=== PATIENT | female | born 1970 | race Caucasian/White ===

== ENCOUNTER 2020-02-03 22:01 | Observation (INO) | payer BC, SELFPAY ==
--- NOTE | ~2020-02-03 | US_ITS ---
EXAMINATION: US carotid duplex BI DATE: 02/04/2020 13:51 INDICATION: Right facial weakness. TECHNIQUE: Grayscale, color Doppler, and pulsed Doppler images of the cervical carotid arteries were obtained. The degree of vessel stenosis is placed in one of the following categories: normal, <50%, 5 0-69%, >=70% but less than near-occlusion, near-occlusion, or total occlusion. Note that percent sten osis relative to normal distal artery lumen diameter is indirectly measured from velocity measurement s as described by Tao, et al. Radiology 2003; 229:340-346. COMPARISON: None. FINDINGS: RIGHT: The right common carotid artery (CCA) peak systolic velocity (PSV) is 78 cm/s. The right internal car otid artery (ICA) PSV is 112 cm/s. The right ICA end-diastolic velocity (EDV) is 41 cm/s. The right I CA/CCA PSV ratio is 1.4. Grayscale and color Doppler images yield an estimate of <50% diameter reduct ion from plaque in the ICA. There is antegrade flow in the right vertebral artery. LEFT: The left CCA PSV is 89 cm/s. The left ICA PSV is 89 cm/s. The left ICA EDV is 28 cm/s. The left ICA/C CA PSV ratio is 1.0. Grayscale and color Doppler images yield an estimate of <50% diameter reduction from plaque in the ICA. There is antegrade flow in the left vertebral artery. IMPRESSION: 1. <50% stenosis in the right internal carotid artery. 2. <50% stenosis in the left internal carotid artery. Reviewed, dictated and finalized at location A. F ENGINEER
--- NOTE | ~2020-02-03 | MR_ITS ---
EXAMINATION: MR brain/brain stem wo/w con DATE: 02/04/2020 08:26 INDICATION: Right facial weakness. Headache. TECHNIQUE: Magnetic resonance imaging (MRI) of the brain and brainstem was performed without and with 14 mL MultiHance intravenous contrast. Sequences included sagittal and axial T1-weighted FSE, axial diffusion-weighted FS EPI, axial T2*-weighted GRE, axial T2-weighted FLAIR Propeller, and axial T2-we ighted Propeller. Postcontrast sequences included axial and coronal T1-weighted FSE. Apparent diffusi on coefficient (ADC) maps were created. COMPARISON: Head CT 02/04/2020 FINDINGS: There are scattered areas of nonspecific increased T2-weighted signal intensity in the cere bral white matter, which is within normal limits for the patient's age. There is no intracranial hemo rrhage, acute infarction, or abnormal intracranial mass lesion. The ventricles are normal in size. Th ere is mild mucosal thickening in the ethmoid sinuses. The orbits are normal. There are trace mastoid effusions. IMPRESSION: 1. Normal aging brain. Reviewed, dictated and finalized at location A. TATION TRUCK CLEANER IMPRESSION: 1. Normal aging brain.
--- NOTE | ~2020-02-03 | MR_ITS ---
EXAMINATION: MRA brain wo con DATE: 02/04/2020 14:31 INDICATION: Headache. Right facial weakness. TECHNIQUE: Magnetic resonance angiography (MRA) of the brain was performed without intravenous contra st with T1-weighted SPGR by the 3D [id number] technique. Maximum intensity projection 3D-reconstr uctions were obtained. COMPARISON: Brain MRI 02/04/2020 FINDINGS: Left vertebral artery is dominant. There is no significant stenosis of basilar artery or the posterio r cerebral arteries. There is no significant stenosis of the intracranial internal carotid arteries o r anterior or middle cerebral arteries. Anterior communicating artery is normal. Left posterior commu nicating artery is normal. A right posterior communicating artery is not identified. There is no aneu rysm. IMPRESSION: 1. No aneurysm or significant arterial stenosis. Reviewed, dictated and finalized at location A. ING MACHINE OPERATOR
--- NOTE | ~2020-02-03 | XR_ITS ---
EXAMINATION: XR chest 1V portable DATE: 02/04/2020 00:36 INDICATION: Dizziness and headache. TECHNIQUE: A single frontal view of the chest was obtained. COMPARISON: Chest 2 views 11/04/2013, CT abdomen and pelvis 01/17/2011 FINDINGS: The chest demonstrates clear lungs without pneumonia, pleural effusion, or pneumothorax. Th e heart size is normal. Surgical clips in the right upper quadrant are likely from cholecystectomy. IMPRESSION: 1. No acute cardiopulmonary disease. Reviewed, dictated and finalized at location A. OGRAPHER APPRENTICE LITHOGRAPHIC
--- NOTE | ~2020-02-03 | CT_ITS ---
EXAMINATION: CT brain wo con DATE: 02/04/2020 00:32 INDICATION: Headache. Facial weakness. TECHNIQUE: Computed tomography (CT) of the head was performed without intravenous contrast. The mA wa s adjusted according to patient size. Iterative reconstruction technique was employed. The dose-lengt h product was 605.33 mGy-cm. COMPARISON: None FINDINGS: There is no intracranial hemorrhage, acute infarction, or abnormal intracranial mass lesion . The ventricles are normal in size. The paranasal sinuses are clear. There is a small left mastoid e ffusion. The orbits are normal. IMPRESSION: 1. Normal brain. Reviewed, dictated and finalized at location A. IED PSYCHOLOGY TEACHER IMPRESSION: 1. Normal brain.
[2020-02-03 22:34] VITALS: BP 137/77; PULSE 87; RESP 20; TEMP 35.9; O2SAT 100
[2020-02-03 23:57] VITALS: BP 119/67; PULSE 84; RESP 18; TEMP 36.8; O2SAT 98
--- NOTE | 2020-02-04 00:02 | ECG_ITS ---
Measurements Intervals [place] Rate: 62 P: 24 ND: 157 QRS: 30 QRSD: 98 T: 47 QT: 443 QTc: 451 Interpretive Statements SINUS RHYTHM NORMAL ECG Electronically Signed On 02-04-2020 6:50:00 ASSOCIATE TECHNICIAN by Jake Lama D.O.
--- NOTE | 2020-02-04 00:24 | PC.NURSE ---
Patient to radiology
--- NOTE | 2020-02-04 00:31 | ED.HA ---
HPI - Headache General Chief Complaint: Headache <SID Salas Last Filed: 02/04/20 02:47> Stated Complaint: ORTIZ, n/v, dizzy <SID Salas Last Filed: 02/04/20 02:47> Time Seen by Provider: 02/03/20 23:54 <SID Salas Last Filed: 02/04/20 02:47> Source: patient <SID Salas Last Filed: 02/04/20 02:47> Mode of arrival: ambulatory <SID Salas Last Filed: 02/04/20 02:47> Limitations: no limitations <SID Salas Last Filed: 02/04/20 02:47> History of Present Illness HPI Narrative: This is a 49 year old female that presents to the ER for right sided headache x 4 hours. Reports she noted some pain behind her right eye. Then she started to have a headache. Then she noted some drooping of her right eyelid and the vision in her right eye became blurry. Reports these symptoms resolved after about 30 minutes, but she does still have some photophobia in the eye and nausea. Reports a couple episodes of vomiting. Also reports still a mild headache. Denies fever, cold symptoms, or current numbness or weakness. <SID Salas Last Filed: 02/04/20 02:47> Related Data Home Medications: Home Medications Medication Instructions Recorded Confirmed No Home Medications 02/03/20 02/03/20 <SID Salas Last Filed: 02/04/20 02:47> Allergies/Adverse Reactions: Allergies Allergy/AdvReac Type Severity Reaction Status Date / Time gadobenic acid Allergy Intermediate Hives Verified 02/04/20 04:05 [From contrast - MRI] iodine Allergy Unknown Rash Verified 02/04/20 04:05 Sulfa (Sulfonamide Allergy Unknown Hives Verified 02/04/20 04:05 Antibiotics) sulfanilamide Allergy Unknown Hives Verified 02/04/20 04:05 adhesive tape AdvReac Severe RASH Verified 04/28/19 16:20 Contrast Media Allergy Intermediate Swelling Uncoded 02/04/20 04:05 <Gretel Bravo PA-C - Last Filed: 02/04/20 02:47> Review of Systems Review of Systems: Narrative: CONSTITUTIONAL: Denies fever EYES: Reports visual changes ENT: Denies rhinorrhea, congestion, sore throat GASTROINTESTINAL: Reports nausea, vomiting NEUROLOGIC: Reports headache, weakness. <Gretel Bravo PA-C - Last Filed: 02/04/20 02:47> All systems reviewed & are unremarkable except as noted in HPI and below <Gretel Bravo PA-C - Last Filed: 02/04/20 02:47> PMFSH Past Medical History Medical History: Medical History (Updated 02/04/20 @ 02:47 by Gretel Bravo PA-C) History of gastroesophageal reflux (GERD) <Gretel Bravo PA-C - Last Filed: 02/04/20 02:47> Surgical History Surgical History: Surgical History (Updated 02/04/20 @ 00:40 by Gretel Bravo PA-C) History of appendectomy History of History of cholecystectomy History of hysterectomy <Gretel Bravo PA-C - Last Filed: 02/04/20 02:47> Family History Family History: Family History (Updated 01/02/17 @ 14:11 by DOCTOR UNKNOWN) Mother Patient's mother is in good health Father Patient's father is in good health Other Family history of osteoarthritis Hypertension <Gretel Bravo PA-C - Last Filed: 02/04/20 02:47> Social History Social History: Social History Smoking status: Never smoker Second hand tobacco smoke exposure: No Alcohol intake: never Substance use: never Gender identity (if verbalized by the patient): Female Spiritual care concerns: No Agree to blood products: Yes <Gretel Bravo PA-C - Last Filed: 02/04/20 02:47> Exam Narrative: Exam Narrative: GENERAL: Well-appearing, well-nourished, and in no acute distress. HEAD: Normocephalic, atraumatic. EYES: PERRLA and EOMI. Vision 20/30 left, 20/50 right ENT: Nares clear, no rhinorrhea or epistaxis. Mucous membranes moist. Oropharynx without tonsillar hypertrophy exudate or other lesions. Bilateral TMs pearly mix non-bulging NECK: Supple. No adenopathy
[2020-02-04] MEDS: ONDANSETRON INJ 4 MG/2 ML VIAL IV PUSH (00:51)
[2020-02-04] MEDS: SODIUM CHLORIDE 0.9% IV 1,000 ML 999 ML IV CONT (00:51)
[2020-02-04 01:11] LABS: Basophils Percent Auto 0.7 % (0.2-1.2); Eosinophils Absolute Auto 0.1 K/mm3 (0-0.3); Eosinophils Percent Auto 2.2 % (0-4.4); Hematocrit 39.9 % (37.0-47.0); Hemoglobin 13.8 g/dL (12.0-15.0); Immature Granulocyte Absolute 0.01 K/mm3 (0.00-0.031); Immature Granulocyte Percent A 0.2 % (0-0.5); Lymphocytes Absolute Auto 3.13 K/mm3 (0.9-3.2); Lymphocytes Percent Auto 56.3 % (18.3-44.2); Mean Corpuscular HGB Conc 34.6 g/dl (32-36); Mean Corpuscular Hemoglobin 29.6 pg (26-34); Mean Corpuscular Volume 85.6 fl (80-100); Mean Platelet Volume 9.2 fl (7.4-10.4); Monocytes Absolute Auto 0.4 K/mm3 (0.1-0.6); Monocytes Percent Auto 6.8 % (2.6-8.5); Neutrophils Absolute Auto 1.9 K/mm3 (1.3-6.7); Neutrophils Percent Auto 33.8 % (45.5-73.1); Platelet Count Result 235 k/mm3 (150-375); Red Blood Count 4.66 M/mm3 (4.2-5.4); Red Cell Distribution Width 12.8 % (11.5-14.5); White Blood Count 5.6 K/mm3 (4.5-10.0)
[2020-02-04 01:14] LABS: INR 0.9; Prothrombin Time 11.9 Seconds (11.1-14.7)
[2020-02-04 01:15] LABS: Partial Thromboplastin Time 30.6 SECONDS (22.3-36.8)
[2020-02-04 01:19] LABS: Blood Urea Nitrogen 12 mg/dL (7-17); Carbon Dioxide 25 mmol/L (22-30); Chloride 102 mmol/L (98-107); Estimated CRCL calculation 95 ml/min; Estimated Glomerular Filt Rate > 60; Glucose 127 mg/dL (65-105); Potassium 3.4 mmol/L (3.4-5.0); Sodium 139 mmol/L (137-145)
[2020-02-04 01:21] VITALS: TEMP 36.8
[2020-02-04 01:43] VITALS: BP 107/58; PULSE 61; RESP 13; O2SAT 98
[2020-02-04 01:53] LABS: Troponin I 0.012 ng/mL (0.000-0.034)
[2020-02-04] MEDS: METOCLOPRAMIDE HCL INJ 10 MG/2 ML VIAL IV PUSH (02:51)
[2020-02-04] MEDS: KETOROLAC 30 MG/ML VIAL (*BKC) IV PUSH (02:54)
[2020-02-04 03:06] VITALS: BP 97/78; PULSE 70; RESP 17; TEMP 36.6; O2SAT 99
[2020-02-04 03:25] VITALS: BP 105/58; PULSE 68; RESP 18; TEMP 36.8; O2SAT 92; BMI 29.6
--- NOTE | 2020-02-04 03:42 | ADMGEN ---
This patient, Yolanda Plata, was admitted to 3 [facility] Surg Room 324-02. Patient/family oriented to hospital policies and general routines including ID bracelet, bed and alarms, visiting hours, pain management, procedures, bathroom and other care routines, personal items, smoking policy, room service/diet, and visiting hours. Valuables list has been completed. Information on how to activate the Rapid Response Team has been discussed. Patient/Family are encouraged to report perceived risks to care and to ask questions if they do not understand what they are told or what they should do.
[2020-02-04 04:00] VITALS: PULSE 70
--- NOTE | 2020-02-04 05:45 | ECHO_ITS ---
Patient Info Name: Yolanda Plata Age: 49 years : 1970 Gender: Female Ht: 63 in Wt: 167 lbs BSA: 1.86 m2 HR: 59 bpm BP: 134 / 73 mmHg Technical Quality: Good Exam Date: 02/04/2020 12:54 PM Exam Location: [facility] Pulmonary Patient Status: Outpatient Admit Date: 02/04/2020 Staff Ordering Physician: Henry Lubin MD Emergency Dispatch Operator: Chris Bullock, FERNANDA, RT Attending Provider: Henry Lubin MD Referring Physician: Amee BRYANT; Exam Type: CA echo doppler color flow Study Info Indications G45.9 - Transient cerebral ischemic attack, unspecified Complete two-dimensional, color flow and Doppler transthoracic echocardiogram is performed. Summary 1. Left ventricular chamber dimension is normal. 2. Left ventricular systolic function is normal, estimated at 60-65%. 3. The left ventricular diastolic function is normal. 4. E/e' 7 is not elevated. 5. Global longitudinal strain is normal at -18.3%. 6. There is trace mitral valve regurgitation. 7. There is trace tricuspid valve regurgitation. Left Ventricle E/e' 7 is not elevated. Global longitudinal strain is normal at -18.3%. Left ventricular chamber dimension is normal. Left ventricular systolic function is normal, estimated at 60-65%. The left ventricular diastolic function is normal. Right Ventricle Right ventricular chamber dimension is normal. Right ventricular systolic function is normal. Left Atria Left atrial chamber dimension is normal. Right Atria Right atrial chamber dimension is normal. Atrial Septum Intact interatrial septum visualized by color flow imaging. Aortic Valve The aortic valve is trileaflet. There is no aortic valve stenosis. There is no aortic valve regurgitation. Pulmonic Valve There is no pulmonic regurgitation. Mitral Valve There is no mitral valve stenosis. There is trace mitral valve regurgitation. Tricuspid Valve There is trace tricuspid valve regurgitation. RVSP is not measured due to an inadequate TR jet. Pericardium/Pleural There is no pericardial effusion. Inferior Vena Cava Normal inferior vena cava with >50% collapse upon inspiration consistent with normal right atrial pressure, 5 mmHg. Aorta The aortic root size at the sinus of Valsalva is normal. Left Ventricular Outflow Tract Name Value Normal LVOT 2D LVOT Diameter 1.9 cm LVOT Doppler LVOT Peak Gradient 4 mmHg LVOT Mean Gradient 2 mmHg LVOT VTI 20 cm LVOT VTI/AV VTI Ratio 0.9 LVOT Stroke Volume 59 ml LVOT CO 4.0 l/min LVOT CI 2.1 l/min/m2 Pulmonic Valve Name Value Normal PV Doppler PV Peak Gradient 2 mmHg Mitral Valve ------
[2020-02-04 06:00] VITALS: BP 134/73; PULSE 85; RESP 18; TEMP 36.7; O2SAT 100
[2020-02-04] MEDS: SODIUM CHLORIDE 0.9% IV 1,000 ML 100 ML IV CONT (06:15)
[2020-02-04 06:59] LABS: Cholesterol 215 mg/dL (0-200); HDL Direct 48 mg/dL; Triglycerides 86 mg/dL (<150)
[2020-02-04 07:10] LABS: LDL Cholesterol Direct 164 mg/dL
[2020-02-04] MEDS: ASPIRIN 81 MG ENTERIC TABLET PO (08:28)
[2020-02-04 10:06] LABS: Free T4 Free Thyroxine Reflex 1.08 ng/dL (0.78-2.19)
--- NOTE | 2020-02-04 11:23 | PM.IMHP ---
H&P: HPI History of Present Illness Chief complaint: rule out cva Narrative: Yolanda Plata is a 49 year old female was in her usual state of health about 8:00 p.m. last evening. She developed sudden onset a right orbital and ocular headache. Severe and intense. Constant. Not throbbing. Shortly after onset her right lid drooped and she has slight drooping of the right corner of her mouth. Vision in her right eye was severely blurred. During the headaches she had photophobia and nausea vomiting and dizziness. No phonophobia. The severe headache lasted about 1/2 hour. The photophobia persisted for a few hours. She had someone tour bus driver/guide to the emergency room and arrived at about 10:[address] of the brain was unremarkable. The dripping high and coronary the mouth had resolved by the time she reached the emergency department. She has a history of migraine headaches during her early 20s. Perimenstrual. Occipital with associated photophobia nausea vomiting. She would take medication at the onset and every hour until the headache resolved. She had about 5-6 headaches during her life time prior to the headache last PM. Denied trouble speaking or swallowing. Denied trouble hearing. Denied focal numbness or tingling in the extremities. Denied focal weakness in the extremities. Denied difficulty walking. Review of Systems Review of Systems: All systems reviewed & are unremarkable except as noted in HPI and below PMFSH Past Medical History Medical History (Updated 02/04/20 @ 11:56 by Mark Mo MD) History of gastroesophageal reflux (GERD) Hypercholesterolemia Migraine Surgical History Surgical History (Updated 02/04/20 @ 11:29 by Mark Mo MD) History of appendectomy History of History of cholecystectomy History of hysterectomy At about age 35 History of removal of cervix but not uterus for abnormal cells Family History Family History Mother Patient's mother is in good health Father Patient's father is in good health Other Family history of osteoarthritis Hypertension Social History Social History (Updated 02/04/20 @ 11:30 by Mark Mo MD) Smoking status: Never smoker Second hand tobacco smoke exposure: No Alcohol intake: current Alcohol use details: about once per month, small amount Substance use: never Living arrangements: alone Occupation/Education: occupation 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 Gender identity (if verbalized by the patient): Female Spiritual care concerns: No Agree to blood products: Yes Meds Home Medications and Allergies Home Medications Medication Instructions Recorded Confirmed Type No Home Medications 02/03/20 02/03/20 History Allergies Allergy/AdvReac Type Severity Reaction Status Date / Time gadobenic acid Allergy Intermediate Hives Verified 02/04/20 04:05 [From contrast - MRI] iodine Allergy Unknown Rash Verified 02/04/20 04:05 Sulfa (Sulfonamide Allergy Unknown Hives Verified 02/04/20 04:05 Antibiotics) sulfanilamide Allergy Unknown Hives Verified 02/04/20 04:05 adhesive tape AdvReac Severe RASH Verified 04/28/19 16:20 Contrast Media Allergy Intermediate Swelling Uncoded 02/04/20 04:05 Vital Signs Vital Signs - 24 hr 02/03/20 22:34 02/03/20 23:57 02/04/20 01:21 Temperature 96.6 F L 98.2 F 98.2 F Pulse Rate 87 84 Respiratory Rate 20 18 Blood Pressure 137/77 119/67 Pulse Oximetry 100 98 02/04/20 01:43 02/04/20 03:06 02/04/20 03:25 Temperature 97.8 F 98.2 F Pulse Rate 61 70 68 Respiratory Rate 13 17 18 Blood Pressure 107/58 L 97/78 L 105/58 L Pulse Oximetry 98 99 92 02/04/20 04:00 02/04/20 06:00 Temperature 98.1 F Pulse Rate 70 85 Respiratory Rate 18 Blood Pressure 134/73 Pulse Oximetry 100 Exam Narrative: Exam Narrative: HEENT: EOMI, PERRL, sclerae nonicter
--- NOTE | 2020-02-04 15:17 | CONS_ITS ---
DATE OF CONSULTATION: Patient of Dr. Henry Lubin. HISTORY: This 49 years old right-handed female has been admitted to [facility] through the emergency room for the complaint of sudden onset of right ocular pain and headache of intense severity. Shortly after that, the patient developed right upper eyelid drooping and drooping of the right side of the corner of the mouth. Her vision in the right eye was severely blurred. She complained of photophobia, nausea and vomiting along with the dizziness, but no phonophobia. The whole episode of severe headache lasted for about 1-1/2 hours and subsequently persisted for few hours the photophobia. Someone drove her to the emergency room. Initial CT scan in the emergency room was negative. The facial asymmetry was resolved by that time she came to the emergency room subsequently. She does have a history of migraine headaches during her early 20s, in perimenstrual period mainly located in the occipital area associated with nausea, vomiting, and photophobia. She had taken the medication almost every 1 hour at that time until the headache was resolved. She gave no history of difficulties in swallowing, difficulties in speech. PAST MEDICAL HISTORY: She does have ongoing history of 1. GERD. 2. Hypercholesterolemia. 3. Migraine. PAST SURGICAL HISTORY: She has undergone appendectomy, , cholecystectomy, hysterectomy, and removed her cervix, but not uterus for abnormal cells. FAMILY HISTORY: Unremarkable except the history of osteoarthritis and hypertension. SOCIAL HISTORY: She does not smoke and drinks only once per month, very small amount. No substance abuse. MEDICATIONS: She is not taking any home medication. ALLERGIES: SHE IS ALLERGIC TO MRI CONTRAST, IODINE, SULFA, AND ADHESIVE TAPE. PHYSICAL EXAMINATION: VITAL SIGNS: On initial evaluation, she was found to be afebrile with pulse 87, respiration 20, blood pressure 137/77. GENERAL: On examination today, she is awake, alert, cooperative, in no obvious acute distress. HEENT: Head normocephalic with no cranial bruit. Ear, nose, throat examination normal. NECK: Supple with no cervical bruit. No thyromegaly. No lymphadenopathy. HEART: Regular with no murmur. LUNGS: Clear to auscultation. ABDOMEN: Soft with no organomegaly. NEUROLOGICAL: She is awake, alert, and oriented x3. Her speech not dysphasic, no dysarthric, not dysphonic. Affect completely normal. Motor examination revealed her to have normal strength and tone in upper and lower extremities proximally and distally with no evidence of asymmetry of the deep tendon reflexes. Plantars are definitely downgoing. There is no evidence of ataxia or dysmetria on [id number]-to-finger. LABORATORY AND IMAGING DATA: Evaluation up until now revealed normal CBC, normal basic metabolic panel, troponin 0.012. She has undergone brain MRI, which revealed normal aging brain. CT scan of the head without contrast, normal. Chest x-ray is negative. PLAN: We are planning to have the CTA because of the right-sided visual difficulties. As she is allergic to the dye, she will be prepared today for allergic reaction and will undergo this study tomorrow. In the meantime, she will be continued on the medication as such, which includes p.r.n. pain medication. Thank you very much for letting me to evaluate this patient. STEPHANIE GARCIA M.D. FLIGHT TEST DATA ACQUISITION TECHNICIAN FLIGHT TEST DATA ACQUISITION TECHNICIAN D [place]: Gerri
[2020-02-04 15:29] LABS: Total Triiodothyronine (T3) 1.32 NG/ML (0.97-1.69)
--- NOTE | 2020-02-04 15:56 | PM.DS ---
DS: Diagnosis Admitting Diagnosis Admitting Diagnosis: Headache Discharge Diagnosis (1) Headache: Qualifiers: Headache type: unspecified Headache chronicity pattern: acute headache Intractability: not intractable Qualified Code(s): R51 - Headache Code(s): R51 - Headache Status: Acute Assessment and Plan: Although this was the worst headache of her life, the periorbital unilateral location, associated visual symptoms, photophobia, nausea vomiting all suggest vascular headache. Her past history of migraine are consistent with recurrence of migraines. However cerebral aneurysm should be excluded. MRA brain Home if negative (2) Elevated TSH: Code(s): R79.89 - Other specified abnormal findings of blood chemistry Status: Acute Assessment and Plan: Currently she is asymptomatic without symptoms of hypothyroidism She may have euthyroid hypothyroidism Outpatient follow-up is indicated (3) Hypercholesterolemia: Code(s): E78.00 - Pure hypercholesterolemia, unspecified Status: Acute Assessment and Plan: Given that her LDL cholesterol is less than 190 and she has no other cardiovascular risk factors, that should be addressed with lifestyle modification and follow-up lab DS: Summary Hospital Course Reason for hospitalization: headache Hospital Course: Presented with headache, blurred vision, right facial droop. Persisted for about 30 min. Photophbia. N/v as well. MRA brain negative. Carotid doppler negative. No recurrence of headache. Time Spent with Patient Time attestation: Total time spent providing and/or coordinating discharge services: 45 min Exam Narrative: Exam Narrative: HEENT: EOMI, PERRL, sclerae nonicteric, Fundi intact, pharyngeal mucosa pink and intact NECK: No JVD, adenopathy, or thyromegaly CHEST: Clear to auscultation. Normal effort. HEART: NL S1/S2, regular, no murmur ABDOMEN: BS+, soft, nontender, no mass, no bruits EXTREMITIES: No cyanosis, edema, or clubbing NEUROLOGIC: CN intact and symmetric to inspection. DTRs intact biceps triceps and knees. Trace at the ankles. Babinski's negative. Finger-nose intact. No drift. MUSCULOSKELETAL: Tone and strength symmetric. PSYCH: Alert. Oriented to person, place, and time. DS: Data Data Completed and Pending Labs on day of discharge: Labs from last 24 hours 02/04/20 02/04/20 02/04/20 06:36 06:36 06:36 WBC RBC Hgb Hct MCV MCH MCHC RDW Plt Count MPV Immature Gran % (Auto) Neut % (Auto) Lymph % (Auto) [place] % (Auto) Eos % (Auto) Baso % (Auto) Lymph # (Auto) [place] # (Auto) Eos # (Auto) Baso # (Auto) Abs Immat Gran (auto) Absolute Neuts (auto) Absolute Nucleated RBC Nucleated RBC % PT INR APTT Sodium Potassium Chloride Carbon Dioxide BUN Creatinine Estim Creat Clear Calc Estimated GFR Glucose Hemoglobin A1c Calcium Troponin I Triglycerides Cholesterol LDL Cholesterol Direct HDL Direct TSH (Reflex) 10.500 H Free T4 1.08 Total T3 1.32 02/04/20 02/04/20 02/04/20 06:36 00:49 00:49 WBC RBC Hgb Hct MCV MCH MCHC RDW Plt Count MPV Immature Gran % (Auto) Neut % (Auto) Lymph % (Auto) [place] % (Auto) Eos % (Auto) Baso % (Auto) Lymph # (Auto) [place] # (Auto) Eos # (Auto) Baso # (Auto) Abs Immat Gran (auto) Absolute Neuts (auto) Absolute Nucleated RBC Nucleated RBC % PT INR APTT Sodium 139 Potassium 3.4 Chloride 102 Carbon Dioxide 25 BUN 12 Creatinine 0.60 L Estim Creat Clear Calc 95 Estimated GFR > 60 Glucose 127 H Hemoglobin A1c 6.0 H Calcium 9.0 Troponin I 0.012 Triglycerides 86 Cholesterol 215 H LDL Cholesterol Direct 164 HDL Direct 48 TSH (Reflex) Free T4 Total T3 03
== END 2020-02-04 16:44 | disposition home or self-care (01) ==
LOC: ANHED 02-04 02:47 → ANH3MEDSUR 02-04 11:36
PROVIDERS: Physician Assistant; Admitting Provider Family Medicine; Emergency Provider General Practice; PCP Internal Medicine; Visit Provider Internal Medicine
DX: R51 Headache (principal); R29.810 Facial weakness; R79.89 Other specified abnormal findings of blood chemistry; E78.00 Pure hypercholesterolemia, unspecified; Z88.2 Allergy status to sulfonamides; Z91.041 Radiographic dye allergy status
CPT/HCPCS: 36415; 70450; 70544; 70553; 71045; 80048; 80061; 83036; 84439; 84443; 84480; 84484; 85025; 85610; 85730; 93005; 93306; 93880; 96361; 96374; 96375; 99285; A9270; A9577; G0378; J0131; J1200; J1885; J2405; J2765; J7030

== ENCOUNTER 2020-05-25 10:59 | Outpatient (CLI) | payer BC, SELFPAY ==
--- NOTE | ~2020-05-25 | MMUS_ITS ---
EXAMINATION: MM screen LT diag RT w marie, US breast RT limited HISTORY: Right breast lump TECHNIQUE: Additional 3-D tomosynthesis images of were performed and synthetic 2-D images were genera sana. Rotated lateral cc views of right breast. CAD analysis was submitted and interpreted. High resol ution targeted right breast ultrasound at 10:00 9 cm from nipple was performed. COMPARISON: 11/27/2018, 08/11/2014 bilateral digital screening mammogram examinations BREAST PARENCHYMAL COMPOSITION: There are scattered areas of fibroglandular density. FINDINGS: MAMMOGRAPHIC FINDINGS: No suspicious mass or architectural distortion, malignant calcification, skin thickening or retractio n or significant new or developing density is detected. A marker was placed on the skin where the patient complains of breast lump, at the axillary tail area . There is only underlying subcutaneous adipose tissue in this area. ULTRASOUND: There is no evidence of focal abnormal solid or cystic lesion in the vicinity of the complaint of rig ht breast lump at 10:00 9 cm from the nipple. IMPRESSION: 1. No mammographic evidence of malignancy 2. . Routine mammographic screening is recommended. BI-RADS Category 1: Negative Reviewed, dictated and finalized at location A. IMPRESSION: 1. No mammographic evidence of malignancy 2. . Routine mammographic screening is recommended. BI-RADS Category 1: Negative
== END 2020-05-25 11:00 | disposition home or self-care (01) ==
PROVIDERS: PCP Internal Medicine; Visit Provider Internal Medicine
DX: Z12.31 Encounter for screening mammogram for malignant neoplasm of breast (principal); N63.10 Unspecified lump in the right breast, unspecified quadrant; R92.2 Inconclusive mammogram
CPT/HCPCS: 76642; 77063; 77065; 77067

== ENCOUNTER 2021-07-14 15:32 | Outpatient (CLI) | payer BC, SELFPAY ==
--- NOTE | ~2021-07-14 | MM_ITS ---
EXAMINATION: MM screening [facility] BI w marie HISTORY: Screening TECHNIQUE: Craniocaudal and mediolateral oblique 3-D tomosynthesis images were obtained and synthetic 2-D images were generated. CAD analysis was submitted and interpreted. COMPARISON: Comparison to multiple prior studies sequentially, with oldest reviewed study dated 06/29. BREAST PARENCHYMAL COMPOSITION: There are scattered areas of fibroglandular density. FINDINGS: There is no evidence of suspicious mass, calcification, or architectural distortion to sugg est malignancy in either breast. There has been no suspicious interval change. IMPRESSION: 1. No mammographic evidence of malignancy. 2. Recommend routine screening mammography in one year. BI-RADS Category 1: Negative Reviewed, dictated and finalized at location A.
== END 2021-07-14 15:33 | disposition home or self-care (01) ==
LOC: ANHIMG 15:34
PROVIDERS: PCP Physician Assistant; Visit Provider Internal Medicine
DX: Z12.31 Encounter for screening mammogram for malignant neoplasm of breast (principal)
CPT/HCPCS: 77063; 77067

== ENCOUNTER 2021-07-18 09:59 | Outpatient (CLI) | payer BC, SELFPAY ==
--- NOTE | 2021-07-26 07:31 | WPDHOLTEREM ---
Holter/Event Monitor Holter/Event Monitor Date of procedure: 07/18/21 Holter/Event Procedure: 48 Hr Holter Monitor Indications: Palpitations Conclusion: 1. 48 hour holter monitor on 07/18/21. 2. Underlying rhythm is sinus rhythm. HR range 49-136 bpm; average HR 81 bpm. 3. There are 11 premature supraventricular complexes and 2 supraventricular couplets. No supraventricular tachycardia. 4. No premature ventricular complexes. No ventricular tachycardia. 5. No sinoatrial or atrioventricular blocks. No significant pauses greater than 2 seconds. 6. Patient reports symptoms of headache, heartburn, fast heart rate, skipped beats which demonstrate sinus rhythm, HR range 66-114 bpm.
== END 2021-07-18 10:00 | disposition home or self-care (01) ==
LOC: ANHCARD 07-28 10:00
PROVIDERS: PCP Physician Assistant; Visit Provider Internal Medicine
DX: R00.2 Palpitations (principal)
CPT/HCPCS: 93225; 93226

== ENCOUNTER 2021-08-21 02:25 | Day surgery (SDC) | payer BC, SELFPAY ==
[2021-08-14 14:18] VITALS: BMI 32.0
[2021-08-21 08:55] VITALS: BP 127/74; PULSE 86; RESP 18; TEMP 36.3; O2SAT 97; BMI 31.3
[2021-08-21] MEDS: LACTATED RINGERS 1,000 ML 150 ML IV CONT (09:09)
[2021-08-21 09:12] LABS: Glucose Point of Care 102 mg/dl (65-105)
--- NOTE | 2021-08-21 09:37 | PM.HPGS ---
History of Present Illness History of Present Illness Consent: Risks, benefits, and alternatives have been discussed and questions answered. Patient agrees to proceed with procedure. Chief complaint: neoplasm screening, epigastric pain Narrative: Yolanda Plata is a 50 year old female who has had problems with heartburn and epigastric pain. she comes in for diagnostic EGD and also for colon cancer screening. Since starting pantoprazole the heartburn has improved but not her pain. She also has had a change in bowel habits beginning in April. Now she has a bowel movement only every 2 or 3 days. She tends have lower abdominal pain before and after bowel movements. She kg she has a spot of blood on her stools. Her stools tend to be hard, either small balls or long, but always hard. She is trying to eat a better diet because she has been found to be diabetic. She has lost about 7 lb with diet Review of Systems Review of Systems: All systems reviewed & are unremarkable except as noted in HPI and below PMFSH Past Medical History Medical History Diabetes mellitus History of gastroesophageal reflux (GERD) Hypercholesterolemia Migraine Surgical History Surgical History History of appendectomy History of History of cholecystectomy History of hysterectomy At about age 35 History of removal of cervix but not uterus for abnormal cells Family History Family History Mother Patient's mother is in good health Melanoma Father Patient's father is in good health Other Family history of osteoarthritis Hypertension Social History Social History Smoking status: Never smoker Second hand tobacco smoke exposure: No Alcohol intake: never Alcohol use details: about once per month, small amount Substance use: never Substance use type: does not use Living arrangements: with family 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 Gender identity (if verbalized by the patient): Female Spiritual care concerns: No Agree to blood products: Yes Meds Home Medications and Allergies Home Medications Medication Instructions Recorded Confirmed Type pantoprazole 40 mg tablet,delayed 40 mg PO QAM #90 tablet 07/05/21 08/14/21 Rx release lisinopril 5 mg tablet 5 mg PO DAILY #90 tablet 07/14/21 08/14/21 Rx metformin 500 mg tablet 500 mg PO BID #60 tablet 07/14/21 08/14/21 Rx rosuvastatin 10 mg tablet 10 mg PO DAILY #90 tablet 07/14/21 08/14/21 Rx blood sugar diagnostic #100 ea 07/21/21 07/31/21 Rx lancets #100 ea 07/21/21 07/31/21 Rx blood-glucose meter #1 ea 08/18/21 Rx Allergies Allergy/AdvReac Type Severity Reaction Status Date / Time iodine Allergy Unknown Rash Verified 08/21/21 08:54 sulfanilamide Allergy Unknown Hives Verified 08/21/21 08:54 adhesive tape AdvReac Severe RASH Verified 08/21/21 08:54 Contrast Media Allergy Intermediate Swelling Uncoded 07/31/21 11:06 Vital Signs Vital Signs - 24 hr 08/21/21 08:55 Temperature 36.3 C L Pulse Rate 86 Respiratory Rate 18 Blood Pressure 127/74 Pulse Oximetry 97 Exam Const: General: alert Orientation/consciousness: patient oriented x3 Resp: Auscultation: clear to auscultation bilaterally Cardio: Rhythm: regular rhythm GI: GI Palp: Yes Soft to palpation and No Tenderness to palpation present (GI) Neuro: General: patient oriented x3 Assessment and Plan Assessment and plan (1) GERD (gastroesophageal reflux disease): Code(s): K21.9 - Gastro-esophageal reflux disease without esophagitis Status: Acute Assessment and Plan: EGD with possible biopsy or dilatation or cautery. (2) Colon cancer screening: Code(s): Z12.11 - Encounter for screening for malignant neoplasm
--- NOTE | 2021-08-21 09:45 | WPDANESEPPF ---
Anes - Initial Pre Proc Eval Procedure: Operation Date: 08/21/21 10:00 Proposed Procedures p Esophagogastroduodenoscopy&Screen Colon - Yrn Jones MD Date/Time: 08/21/21 09:45 Surgeon: Yrn Jones MD Pre Op Diagnosis: neoplasm screening, epigastric pain Patient Data Age: 50 Gender: F Height: 1.6 m Weight: 80.2 kg Last Vital Signs Temp 97.4 F L 08/21/21 08:55 Pulse 86 08/21/21 08:55 Resp 18 08/21/21 08:55 BP 127/74 08/21/21 08:55 Pulse Ox 97 08/21/21 08:55 Allergies Allergy/AdvReac Type Severity Reaction Status Date / Time iodine Allergy Unknown Rash Verified 08/21/21 08:54 sulfanilamide Allergy Unknown Hives Verified 08/21/21 08:54 adhesive tape AdvReac Severe RASH Verified 08/21/21 08:54 Contrast Media Allergy Intermediate Swelling Uncoded 07/31/21 11:06 Home Medications Medication Instructions Recorded Confirmed Type pantoprazole 40 mg tablet,delayed 40 mg PO QAM #90 tablet 07/05/21 08/14/21 Rx release lisinopril 5 mg tablet 5 mg PO DAILY #90 tablet 07/14/21 08/14/21 Rx metformin 500 mg tablet 500 mg PO BID #60 tablet 07/14/21 08/14/21 Rx rosuvastatin 10 mg tablet 10 mg PO DAILY #90 tablet 07/14/21 08/14/21 Rx blood sugar diagnostic #100 ea 07/21/21 07/31/21 Rx lancets #100 ea 07/21/21 07/31/21 Rx blood-glucose meter #1 ea 08/18/21 Rx Laboratory Tests 08/21/21 09:06 POC Capillary Glucose 102 mg/dl mg/dl (65-105) Patient hx anesthesia problems: none Family hx anesthesia problems: none PMFSH Past Medical History Medical History Diabetes mellitus History of gastroesophageal reflux (GERD) Hypercholesterolemia Migraine Surgical History Surgical History History of appendectomy History of History of cholecystectomy History of hysterectomy At about age 35 History of removal of cervix but not uterus for abnormal cells Family History Family History Mother Patient's mother is in good health Melanoma Father Patient's father is in good health Other Family history of osteoarthritis Hypertension Social History Social History Smoking status: Never smoker Second hand tobacco smoke exposure: No Alcohol intake: never Alcohol use details: about once per month, small amount Substance use: never Substance use type: does not use Living arrangements: with family 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 Gender identity (if verbalized by the patient): Female Spiritual care concerns: No Agree to blood products: Yes Anes - Eval Final PreProcedure Day of Procedure 08/21/21 09:45 Patient weight: obese Heart: regular rate and rhythm Lungs: clear to auscultation Airway: Mallampati scale class II Neurological: alert and oriented Last oral intake: >/= 8 hours ASA classification: III Emergent: no Anesthetic plan: proceed Anesthesia type and monitoring: general GIVS and standard monitoring Informed Consent: The patient's anesthetic plan and its attendant risks and benefits were discussed with the patient/family/POA. Questions were solicited and answers provided to the satisfaction of the patient/family/POA.
--- NOTE | 2021-08-21 10:15 | SUR.OPER ---
EGD START 953, END 955 COLONOSCOPY START 1003, END 101
[2021-08-21 10:20] VITALS: BP 102/62; PULSE 75; RESP 17; O2SAT 96
[2021-08-21 10:30] VITALS: BP 113/69; PULSE 83; RESP 15; O2SAT 96
[2021-08-21 10:40] VITALS: BP 111/67; PULSE 80; RESP 13; O2SAT 100
== END 2021-08-21 11:03 | disposition home or self-care (01) ==
PROVIDERS: PCP Physician Assistant; Visit Provider Internal Medicine Gastroenterology
PROC: 0DJ08ZZ Inspection of Upper Intestinal Tract, Via Natural or Artificial Opening Endoscopic (ICD-10-PCS; CPT 43235; principal; 2021-08-21 10:00)
DX: Z12.11 Encounter for screening for malignant neoplasm of colon (principal); K64.8 Other hemorrhoids; K21.9 Gastro-esophageal reflux disease without esophagitis; R10.13 Epigastric pain; E11.9 Type 2 diabetes mellitus without complications; E78.00 Pure hypercholesterolemia, unspecified; Z79.84 Long term (current) use of oral hypoglycemic drugs; E66.9 Obesity, unspecified; Z68.31 Body mass index [BMI] 31.0-31.9, adult
CPT/HCPCS: 45378; 43235; 82948; J7120

== ENCOUNTER 2021-11-15 12:07 | Outpatient (CLI) | payer OTHER, SELFPAY ==
[2021-11-15 13:31] LABS: Add Urine Microscopic? YES; Appearance Urine Clear (Clear); Bacteria Urine Trace /hpf; Bilirubin Urine Negative (Negative); Blood Urine 1+ (Negative); Color Urine Straw (Yellow); Glucose Urine UA Negative (Negative); Ketones Urine Negative (Negative); Leukocyte Esterase Ur 3+ LEU/UL (NEGATIVE); Nitrate Urine Negative (Negative); Protein Urine Negative (Negative); RBC Urine 0-2 /hpf (0-2); Squamous Epithelial Cell Urine Rare /hpf (Few); Urobilinogen Urine Negative mg/dL (<2.0); WBC Urine 16-20 /hpf (0-3)
[2021-11-15 13:43] LABS: Specific Grav Ur 1.002 (1.001-1.035)
== END 2021-11-15 12:08 | disposition home or self-care (01) ==
PROVIDERS: PCP Internal Medicine; Visit Provider Physician Assistant
DX: R30.0 Dysuria (principal)
CPT/HCPCS: 81001; 87077; 87086; 87186

== ENCOUNTER 2021-12-27 08:34 | Outpatient (CLI) | payer OTHER, SELFPAY ==
--- NOTE | ~2021-12-27 | XR_ITS ---
EXAMINATION: XR UGI w barium swallow EXAM DATE: 12/27/2021 09:09 INDICATION: K21.9 - Gastro-esophageal reflux disease without esophagitis. TECHNIQUE: Standard single and double contrast barium esophagram and upper GI examination was perform ed by radiologist Lj Harmon M.D. Pulsed dose reduction fluoroscopy was used with fluoroscopic time of 0.7 minutes. The DAP for this procedure was 0.9 Gycm2. A total of 129 images obtained for the e xam. There is no prior study for comparison. FINDINGS: The pharynx is symmetric and without evidence of mass lesion or mucosal irregularity. Ther e is no esophageal stricture, diverticulum or mass identified. Small sliding gastroesophageal hiatal hernia. Reflux was not specifically demonstrated during this exam. The stomach has a normal appearance without evidence of mass lesion, ulceration or filling defect. T here is normal rugal fold pattern. The duodenum and duodenal sweep are normal in appearance. Cholecy stectomy clips. IMPRESSION: Small sliding gastroesophageal hiatal hernia. Reviewed, dictated and finalized at location A. 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
== END 2021-12-27 08:35 | disposition home or self-care (01) ==
LOC: ANHIMG 08:35
PROVIDERS: PCP Internal Medicine; Visit Provider Internal Medicine Gastroenterology
DX: K21.9 Gastro-esophageal reflux disease without esophagitis (principal); K44.9 Diaphragmatic hernia without obstruction or gangrene
CPT/HCPCS: 74240

== ENCOUNTER 2022-05-24 10:06 | Outpatient (RCR) | payer OTHER, SELFPAY ==
[2022-05-24] MEDS: diphenhydrAMINE HCl CAP 25 MG CAPSULE PO (12:42)
[2022-05-24] MEDS: FAMOTIDINE 20 MG TABLET PO (12:42)
[2022-05-24] MEDS: ACETAMINOPHEN 325 MG TABLET 650 MG PO (12:42)
[2022-05-24 12:51] VITALS: BP 110/58; PULSE 70; RESP 18; TEMP 37.1; O2SAT 98
[2022-05-24] MEDS: BEBTELOVIMAB 175 MG/2 ML VIAL IV PUSH (13:02)
[2022-05-24 13:50] VITALS: BP 131/58; PULSE 68; RESP 18; O2SAT 98
== END 2022-05-24 16:00 ==
LOC: AMCINF 10:06
PROVIDERS: PCP Physician Assistant; Referring Provider Physician Assistant; Visit Provider Internal Medicine Hematology & Oncology
DX: U07.1 COVID-19 (principal); E11.9 Type 2 diabetes mellitus without complications
CPT/HCPCS: A9270; M0222; Q0222

== ENCOUNTER 2022-09-21 07:37 | Outpatient (CLI) | payer OTHER, SELFPAY ==
--- NOTE | ~2022-09-21 | MM_ITS ---
EXAMINATION: MM screening [facility] BI w marie HISTORY: Screening TECHNIQUE: Craniocaudal and mediolateral oblique 3-D tomosynthesis images were obtained and synthetic 2-D images were generated. CAD analysis was submitted and interpreted. COMPARISON: Comparison to multiple prior studies sequentially, with oldest reviewed study dated 08/11. BREAST PARENCHYMAL COMPOSITION: Breast composed of scattered areas of fibroglandular density FINDINGS: There is no evidence of suspicious mass, calcification, or architectural distortion to sugg est malignancy in either breast. There has been no suspicious interval change. IMPRESSION: 1. No mammographic evidence of malignancy. 2. Recommend routine screening mammography in one year. BI-RADS Category 1: Negative Reviewed, dictated and finalized at location A.
== END 2022-09-21 07:38 | disposition home or self-care (01) ==
PROVIDERS: PCP Physician Assistant; Visit Provider Obstetrics & Gynecology
DX: Z12.31 Encounter for screening mammogram for malignant neoplasm of breast (principal)
CPT/HCPCS: 77063; 77067

== ENCOUNTER 2024-02-20 07:10 | Outpatient (CLI) | payer BC, SELFPAY ==
--- NOTE | ~2024-02-20 | MM_ITS ---
EXAMINATION: MM screening [facility] BI w marie HISTORY: Screening TECHNIQUE: Craniocaudal and mediolateral oblique 3-D tomosynthesis images were obtained and synthetic 2-D images were generated. CAD analysis was submitted and interpreted. COMPARISON: Comparison to multiple prior studies sequentially, with oldest reviewed study dated 09/02. BREAST PARENCHYMAL COMPOSITION: There are scattered areas of fibroglandular density. FINDINGS: There is no evidence of suspicious mass, calcification, or architectural distortion to sugg est malignancy in either breast. There has been no suspicious interval change. IMPRESSION: 1. No mammographic evidence of malignancy. 2. Recommend routine screening mammography in one year. BI-RADS Category 1: Negative Reviewed, dictated and finalized at location A.
== END 2024-02-20 07:11 | disposition home or self-care (01) ==
PROVIDERS: PCP Physician Assistant; Visit Provider Internal Medicine
DX: Z12.31 Encounter for screening mammogram for malignant neoplasm of breast (principal)
CPT/HCPCS: 77063; 77067

== ENCOUNTER 2025-08-11 14:42 | Outpatient (CLI) | payer BC, SELFPAY ==
--- NOTE | ~2025-08-11 | MM_ITS ---
EXAMINATION: screening [facility] BI w marie INDICATION: Asymptomatic, referred for screening mammogram COMPARISON: 02/20/2024 through 11/27/2018 TECHNIQUE: Digital Breast Tomosynthesis CC, MLO views of Both breasts were obtained with computer-aided detection to assist in interpretation of the study. FINDINGS: There are scattered areas of fibroglandular density. There is an asymmetry seen on the MLO view in the Superior left breast at middle third. Elsewhere, there are no mammographic features of malignancy. IMPRESSION: 1. Left breast Asymmetry. 2. No evidence of malignancy in the Right breast. RECOMMENDATION: Left breast Diagnostic mammogram with true lateral, appropriate spot compression views and an ultrasound if needed. BI-RADS Category 0: Incomplete: Needs additional imaging evaluation. Reviewed, dictated and finalized at location B. IMPRESSION: 1. Left breast Asymmetry. 2. No evidence of malignancy in the Right breast. RECOMMENDATION: Left breast Diagnostic mammogram with true lateral, appropriate spot compressio n views and an ultrasound if needed. BI-RADS Category 0: Incomplete: Needs additional imaging evaluation.
--- OUTSIDE RECORDS SUMMARY | 2025-08-11 15:13 | XMS_ITS | Encounter Summary ---
Author Organization [facility] Address [address] [place] [address] Phone Care Team Providers Care Print Decorator Name Role Phone Nico Anderson Unavailable [phone] Estuardo Reyes DO Primary Care Provider [phone] Encounter Details Date Type Department Care Team (Late st Contact Info) Description 08/10/2025 Plan of Care Documentation [facility] Medicine Occupational Therapy [address] [facility] [address] [place] [address] [place] [address] Social History Tobacco Use Types Packs/Day Years Used Date Smoking Tobacco: Never Comments Unknown Sex and Gender Information Value Date Recorded Sex Assigned at Not on file Legal Sex Female 5:16 AM [employer] ENG[employer] Gender Identity Not on file Sexual Orientation Not on file documented as of this encounter Plan of Treatment Not on file documented as of this encounter Visit Diagnoses Not on filedocumented in this encounter Care Teams Print Decorator Relationship Specialty Start Date End Date Estuardo Reyes DO [address] [place] [address] PCP - General Internal Medicine 05/17/25 Nico Anderson PA [address] [place] [address] Physician Bone Grinder Physician Bone Grinder 08/28/23 documented as of this encounter
--- OUTSIDE RECORDS SUMMARY | 2025-08-11 15:13 | XMS_ITS | Patient Health Record ---
Author Organization [facility] [employer] Address [address] [place] [address] Care Team Providers Care Associate Store Director Name Role Phone Duane Aldridge Unavailable [phone] Reason For Referral No Information Medications Medication SIG (Take, Route, Frequency, Duration) Notes Start Date End Date Status DayVigo 10 MG Tablet Oral *Reorder fr om Medispan for eRx and Interaction Alerts* 05/23/2023 Active Pantoprazole Sodium 40 MG Tablet Delayed Release Oral 05/23/2023 Active Fenofibrate 160 MG Tablet Oral 05/23/2023 Active Ozempic (1 MG/DOSE) 4 MG/3ML Solution Pen-injector Subcutaneous *Pick strength-form from [employer] for eRX* 05/23/2023 Active Rosuvastatin Calcium 10 MG Tablet Oral 05/23/2023 Active Sertraline HCl 50 MG Tablet Oral 05/23/2023 Active ALPRAZolam 0.5 MG Tablet Oral 05/23/2023 Active traZODone HCl 100 MG Tablet Oral 05/23/2023 Active Social History Social History Additional Details Category Social Info Options Details Migrated Social History Migrated Social History Alcohol Intake: Occasional 05/23/2023,Tobacco Years: Never smoker 05/23/2023 Plan Of Treatment No Information Insurance Providers Payer Name Payer Address Payer Phone Subscriber Number Group Number Insured Name Patient Relationship to Insured Coverage Start Date Coverage End Date [facility] [address] [place] [address] [id number] DEANGELO DAVE Self - patient is the insured Medical (General) History Surgical History Surgery Date(Month/Year) Any surgical history Other Appendectomy (27274) 12/02/1988 delivery ([id number]) 12/02/1989 Hysterectomy ([id number]) 12/02/2005 Removal of gallbladder ([id number]) 4
--- OUTSIDE RECORDS SUMMARY | 2025-08-11 15:13 | XMS_ITS | Clinical Summary ---
Author Organization [facility] Address [address] [place] [address] Care Team Providers Care Motorcoach Operator Name Role Phone Nico Anderson PA Unavailable [phone] Estuardo Reyes DO Primary Care Provider Allergies Active Allergy Reactions Criticality Noted Date Comments Adhesive Rash Medium 01/11/2022 Iodine Itching,Rash Reaction: Itching, Rash, Medications rosuvastatin (CRESTOR) 10 mg tablet Take 1 tablet (10 mg total) by mouth daily Active zolpidem (AMBIEN) 10 mg tablet TAKE 1 TABLET BY MOUTH EVERY DAY AT BEDTIME NEEDED FOR INSOMNIA 3 Active valACYclovir (VALTREX) 500 mg tablet Take 1 tablet (500 mg total) by mouth as needed 3 Active fenofibrate (TRIGLIDE) 160 mg tablet Take 1 tablet (160 mg total) by mouth daily 3 Active ALPRAZolam (XANAX) 0.5 mg tablet 3 Active alendronate (FOSAMAX) 35 mg tablet TAKE 1 TABLET BY MOUTH WEEKLY. 3 Active sertraline (ZOLOFT) 100 mg tablet Take 1 tablet (100 mg total) by mouth daily 4 Active Jardiance 25 mg tablet TAKE ONE TABLET (25MG) BY MOUTH ONCE DAILY 4 Active folic acid (FOLVITE) 1 mg tabletIndication s:Rheumatoid arthritis, erosive, seronegative (HCC),Seronegati ve arthritis,Serone gative rheumatoid arthritis of both hands (HCC) Take 2 tablets (2,000 mcg total) by mouth daily 180 tablet 3 5 Active methotrexate 2.5 mg tabletIndication s:Rheumatoid Arthritis Take 10 tablets (25 mg total) by mouth once a week 120 tablet 5 08/15/20 25 Active hydroxychloroqui ne (PLAQUENIL) 200 mg tabletIndication s:Rheumatoid arthritis, erosive, seronegative (HCC),Seronegati ve rheumatoid arthritis of both hands (HCC) TAKE 1 TABLET BY MOUTH TWICE A DAY 60 tablet 2 5 Active predniSONE (DELTASONE) 5 mg tabletIndication s:Anti-inflammat ory Take 4 tablets (20 mg) by mouth daily for 5 days, THEN 3 tablets (15 mg) daily for 5 days, THEN 2 tablets (10 mg) daily for 5 days, THEN 1 tablet (5 mg) daily for 5 days. 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 Foot pain, bilateral 04/15/2024 Rheumatoid arthritis, erosive, seronegative 11/01 Bilateral hand pain 09/17/2023 Positive SNEHAL (antinuclear antibody) 09/17/2023 Pelvic pain 09/17/2023 Urticaria, unspecified 05/27/2014 Encounters Date Type Department Care Team Description 08/10/2025 [facility] [address] [facility] Advanced Medicine 6th [place] [address] [place] [address] 08/09/2025 2:00 PM CDT Therapy [facility] Medicine Occupational Therapy [address] [facility] 6th [place] [address] [place] [address] Joie Jones, JOYCE Pain of right thumb (Primary Dx); 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) 08/03/2025 12:30 PM CDT Telemedicine [facility] Medicine Rheumatology [address] [facility] [address] [place] [address] Diandra Lopez MD Rheumatoid arthritis, erosive, seronegative (HCC) (Primary Dx); High risk medication use 05/17/2025 12:15 PM CDT Lab [facility] Medicine Endocrinology Metabolism and Lipid [address] [facility] 5th [place] [address] [place] [address] High risk medication use 05/17/2025 11:30 AM CDT Office Visit [facility] Medicine Rheumatology [address] [place] [address] [place] [id number] Suzanne Murphy MD Rheumatoid arthritis, erosive, seronegative (HCC) (Primary Dx); High risk medication use; Chronic pain of left ankle; Chronic pain of right thumb 05/17/2025 Results Follow-Up [facility] Medicine Rheumatology [address] [place] [address] [place] [id number] Suzanne Murphy MD CBC with auto differential, Comprehensive metabolic panel from Last 3 Months Surgical History Surgery Date Site/Laterality Comments APPENDECTOMY SECTION CHOLECYSTECTOMY HYSTERECTOMY DILATION AND CURETTAGE OF UTERUS EXPLORATORY LAPAROTOMY Medical History Medical History Date Comments Type 2 diabetes mellitus Hyperlipidemia Hypertension GERD (gastroesophageal reflux disease) Migraine Depression with anxiety 2008 Osteopenia Endometriosis Family History Medical History Relation Name Comments Hyperlipidemia Father High choleste rol - (Added by TW Conv) Arthritis Mother Gout Mother Hypertension Mother Family history of hypertension - (Added by TW Conv) Other Mother Family history of spinal stenosis - (Added by TW Conv) Relation Name Status Comments Father Mother Social History Tobacco Use Types Packs/Day Years Used Date Smoking Tobacco: Never Tobacco Cessation:Counseling Given: Not Answered Comments Unknown Sex and Gender Information Value Date Recorded Sex Assigned at Not on file 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 Gender Identity Not on file Sexual Orientation Not on file Obstetrics History Last Filed Vital Signs Vital Sign Reading Time Taken Comments Blood Pressure 115/75 05/17/2025 11:13 AM CDT Pulse 63 05/17/2025 11:13 AM CDT Temperature 36.4 C (97.6 F) 02/08/2025 8:22 AM CDT Respiratory Rate 18 01/23/2022 7:08 AM FLAT LOCK MACHINE OPERATOR Oxygen Saturation 100% 05/17/2025 11:13 AM CDT Inhaled Oxygen Concentration - - Weight 75.6 kg (166 lb 9.6 oz) 05/17/2025 11:13 AM CDT Height 160 cm (5' 3) 05/17/2025 11:13 AM CDT Body Mass Index 29.51 05/17/2025 11:13 AM CDT Plan of Treatment Health Maintenance Due Date Last Done Comments Breast Cancer Screening-Mammogram 1970 Colon Cancer Screening-Colonoscopy 1970 Depression Screening 1970 DTaP/Tdap/Td Vaccine (1 - Tdap) 1981 Hepatitis B Screening 1988 Regular Well Visit/Exam 18-64 1988 Pneumococcal vaccine <65 (1 of 2 - PCV) 1989 Zoster Vaccine (1 of 2) 1989 Influenza Vaccine (#1) 2025 Hepatitis C Screening Completed 04/07/2024 Procedures Procedure Name Priority Date/Time Associated Diagnosis Comments COMPREHENSIVE METABOLIC PANEL Routine 05/17/2025 11:56 AM CDT High risk medication use CBC WITH AUTO DIFFERENTIAL Routine 05/17/2025 11:56 AM CDT High risk medication use HEPATITIS C ANTIBODY Routine 04/07/2024 1:00 PM CDT Seronegative arthritis Rheumatoid arthritis, erosive, seronegative (HCC) 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) from Last 3 Months or Most Recently Relevant to Health Maintenance Results * (ABNORMAL) CBC with auto differential (05/17/2025 11:56 AM CDT) White Blood Count 5.4 3.6 - 11.2 K/uL [facility] RBC 4.21 3.63 - 4.92 M/uL [facility] Hemoglobin 13.1 11.9 - 15.5 g/dL [facility] Hematocrit 37.9 36.1 - 44.3 % [facility] MCV 90.0 80.0 - 97.6 fL [facility] MCH 31.1 26.7 - 33.7 pg [facility] MCHC 34.6 32.7 - 35.5 g/dL [facility] RBC Dist Width 14.7 12.3 - 17.0 % [facility] Platelet Count 303 140 - 440 K/uL [facility] MPV 6.9 6.8 - 10.4 fL [facility] Neutrophils % 37.7(L) 38.7 - 74.5 % [facility] Lymphocyte % 48.1 20.0 - 54.3 % [facility] Monocytes % 9.3 4.3 - 13.5 % [facility] Eosinophils % 3.7 0.0 - 6.0 % [facility] Basophil % 1.2 0.0 - 3.0 % [facility] Absolute Neutrophil 2.0 1.8 - 6.6 K/uL [facility] Absolute Lymphocyte 2.6 0.8 - 3.3 K/uL [facility] Absolute Monocyte 0.5 0.2 - 1.2 K/uL [facility] Absolute Eosinophil 0.2 0.0 - 0.5 K/uL [facility] Absolute Basophil 0.1 0.0 - 0.2 K/uL [facility] Nucleated RBC % 0.1 0.0 - 0.4 /100 WBC [facility] Blood 05/17/2025 11:5 6 AM CDT 05/17/2025 12:50 PM CDT us Suzanne Murphy MD LAB BLOOD ORDERABLES Final Result [facility] * (ABNORMAL) Comprehensive metabolic panel (05/17/2025 11:56 AM CDT) Pathologist [facility] Total Protein 7.9 6.1 - 8.4 g/dL [facility] Albumin 4.6 3.5 - 5.2 g/dL [facility] Calcium 9.9 8.6 - 10.3 mg/dL [facility] BUN 12 7 - 23 mg/dL [facility] Total Bilirubin 0.68 0.20 - 1.40 mg/dL [facility] Alk Phos, Total 58 35 - 129 IU/L [facility] AST (SGOT) 27 11 - 47 IU/L [facility] ALT (SGPT) 25 6 - 53 IU/L [facility] Creatinine 0.77 0.60 - 1.10 mg/dL [facility] Sodium 142 135 - 145 mmol/L [facility] Potassium 3.9 3.3 - 5.1 mmol/L [facility] Chloride 107 95 - 107 mmol/L [facility] CO2 Content 22 21 - 29 mmol/L [facility] Glucose 133(H) 64 - 99 mg/dL [facility] Comment: NONFASTING GLUCOSE RANGE = 64-199 mg/dL FASTING GLUCOSE 64 - 99 = NORMAL FASTING GLUCOSE 100 - 125 = IMPAIRED FASTING GLUCOSE FASTING GLUCOSE >=126 = PROVISIONAL DIAGNOSIS OF DIABETES eGFR >90.0 >60.0 mL/min/1.7 3 m2 [facility] Blood 05/17/2025 11:5 6 AM CDT 05/17/2025 12:50 PM CDT us Suzanne Murphy MD LAB BLOOD ORDERABLES Final Result [facility] * Hepatitis C antibody Blood (04/07/2024 1:00 PM CDT) Hep C Ab Nonreactive Nonreactive Comment:Antibodies to HCV no t detected. Does NOT exclude the possibility of recent exposure to HCV. Current interpretive data was last revised on 22 Blood 04/07/2024 1:00 PM CDT 04/07/2024 2:08 PM CDT us Chandan De La Paz NP LAB MICROBIOLOGY - GENERAL ORD ERABLES Final [facility] [place] [address] from Last 3 Months or Most Recently Relevant to Health Maintenance Insurance ANTHEM ACCESS CHOICE ANTHEM ACCESS CHOICE Care Teams Motorcoach Operator Relationship Specialty Start Date End Date Estuardo Reyes DO [address] [place] [address] PCP - General Internal Medicine 05/17/25 Nico Anderson PA [address] [place] [address] Physician Label Maker Physician Label Maker 08/28/23
== END 2025-08-11 14:43 | disposition home or self-care (01) ==
LOC: ANHFOHIMG 14:45
PROVIDERS: PCP Internal Medicine; Visit Provider Obstetrics & Gynecology
DX: Z12.31 Encounter for screening mammogram for malignant neoplasm of breast (principal); R92.8 Other abnormal and inconclusive findings on diagnostic imaging of breast
CPT/HCPCS: 77063; 77067

== ENCOUNTER 2025-09-16 12:54 | Outpatient (CLI) | payer BC, SELFPAY ==
--- NOTE | ~2025-09-16 | MMUS_ITS ---
EXAMINATION: US breast LT limited, MM diagnostic magaly LT w marie HISTORY: Inconclusive mammogram TECHNIQUE: [Additional images of the [[left breast]] were performed using full field digital mammography. 3-D tomosynthesis were also obtained and synthetic 2- D images were generated. CAD analysis was submitted and interpreted. High resolution left breast ultrasound was performed.] ] COMPARISON: Mammograms from 08/11/2025, 02/20/2024 and 09/21/2022 BREAST PARENCHYMAL COMPOSITION: The left breast is heterogeneously dense, which may obscure small masses. FINDINGS: MAMMOGRAPHIC FINDINGS: Asymmetry in the upper left breast,middle depth, seen in the left MLO projection.No convincing sonographic correlate. The finding is probably benign. ULTRASOUND: There is a 3 x 3 x 3 mm oil cyst in the left breast at 10:00 o'clock position, 3 cm from the nipple. There is a 6 x 8 x 3 mm hyperechoic mass in the left breast at the 12:00 position 9.5 cm from nipple anterior depth. The finding is wider than tall. No internal color flow. No posterior acoustic shadowing. The finding is probably benign. There is a 3 x 6 x 3 mm hypoechoic cyst versus solid mass in the left breast 4:00 position 4 cm from the nipple. The finding is wider than tall. No internal color Doppler flow. No posterior acoustic shadowing. The finding is probably benign. ]] IMPRESSION/RECOMMENDATION: 1. Probably benign findings in the left breast. A diagnostic left breast mammogram and a diagnostic left breast ultrasound is recommended. BI-RADS 3-Probably benign-Short interval follow-up suggested. BI-RADS 5 -- highly suggestive of malignancy Reviewed, dictated and finalized at location Q. IMPRESSION/RECOMMENDATION: 1. Probably benign findings in the left breast. A diagnostic left breast mammog rusty and a diagnostic left breast ultrasound is recommended. BI-RADS 3-Probably benign-Short interval follow-up suggested. BI-RADS 5 -- highly suggestive of malignancy IMPRESSION/RECOMMENDATION: 1. Probably benign findings in the left breast. A diagnostic left breast mammog rusty and a diagnostic left breast ultrasound is recommended. BI-RADS 3-Probably benign-Short interval follow-up suggested. BI-RADS 5 -- highly suggestive of malignancy
--- OUTSIDE RECORDS SUMMARY | 2025-09-16 14:40 | XMS_ITS | Encounter Summary ---
Author Organization [facility] Address [address] [place] [address] Phone Care Team Providers Care Works Manager Name Role Phone Nico Anderson Unavailable [phone] Estuardo Reyes DO Primary Care Provider [phone] Encounter Details Date Type Department Care Team (Latest Contact Info) Description 08/18/2025 Results Follow-Up [facility] Medicine Rheumatology [address] [facility] Advanced Medicine 5th [place] [address] [place] [address] Diandra Lopez MD [address] [place] [address] CBC with auto differential Social History Tobacco Use Types Packs/Day Years Used Date Smoking Tobacco: Never Comments Unknown Sex and Gender Information Value Date Recorded Sex Assigned at Not on file 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 Gender Identity Not on file Sexual Orientation Not on file documented as of this encounter Plan of Treatment Not on file documented as of this encounter Visit Diagnoses Not on filedocumented in this encounter Care Teams Works Manager Relationship Specialty Start Date End Date Estuardo Reyes DO [address] [place] [address] PCP - General Internal Medicine 05/17/25 Nico Anderson PA [address] [facility] [address] [place] [address] Physician Slubber Machine Operator Physician Slubber Machine Operator 08/28/23 documented as of this encounter
--- OUTSIDE RECORDS SUMMARY | 2025-09-16 14:41 | XMS_ITS | Patient Health Record ---
Author Organization [facility] [employer] Address [address] [place] [address] Care Team Providers Care Cost Recorder Name Role Phone Duane Aldridge Unavailable [phone] Reason For Referral No Information Medications Medication SIG (Take, Route, Frequency, Duration) Notes Start Date End Date Status DayVigo 10 MG Tablet Oral *Reorder fr om Medispan for eRx and Interaction Alerts* 05/23/2023 Active Pantoprazole Sodium 40 MG Tablet Delayed Release Oral 05/23/2023 Active Fenofibrate 160 MG Tablet Oral 05/23/2023 Active Ozempic (1 MG/DOSE) 4 MG/3ML Solution Pen-injector Subcutaneous *Pick strength-form from FlowPlayspan for eRX* 05/23/2023 Active Rosuvastatin Calcium 10 [...] Insured Coverage Start Date Coverage End Date [facility] [address] [place] [address] [id number] DEANGELO DAVE Self - patient is the insured Medical (General) History Surgical History Surgery Date(Month/Year) Any surgical history Other Appendectomy (42391) 12/02/1988 delivery (80074) 12/02/1989 Hysterectomy (39038) 12/02/2005 Removal of gallbladder (23272) 4
--- OUTSIDE RECORDS SUMMARY | 2025-09-16 14:41 | XMS_ITS | Clinical Summary ---
Author Organization [facility] Address [address] [place] [address] Care Team Providers Care Cake Press Operator Helper Name Role Phone Nico Anderson PA Unavailable [phone] Estuardo Reyes DO Primary Care Provider [phone] Allergies Active Allergy Reactions Criticality Noted Date [...] 4 Active folic acid (FOLVITE) 1 mg tabletIndications :Rheumatoid arthritis, erosive, seronegative (HCC),Seronegativ e arthritis,Seroneg ative rheumatoid arthritis of both hands (HCC) Take 2 tablets (2,000 mcg total) by mouth daily 180 tablet 3 5 Active hydroxychloroquin e (PLAQUENIL) 200 mg tabletIndications :Rheumatoid arthritis, erosive, seronegative (HCC),Seronegativ e rheumatoid arthritis of both hands (HCC) TAKE 1 TABLET BY MOUTH TWICE A DAY 60 tablet 2 5 Active predniSONE (DELTASONE) 5 mg tabletIndications :Anti-inflammator y Take 4 tablets (20 mg) by mouth daily for 5 days, THEN 3 tablets (15 mg) daily for 5 days, THEN 2 tablets (10 mg) daily for 5 days, THEN 1 tablet (5 mg) daily for 5 days. 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 5th [place] [address] [place] [address] Riley Leonard LPN 08/26/2025 Orders Only [facility] Medicine Rheumatology [address] [facility] 5th [place] [address] [place] [address] Diandra Lopez MD High risk medication use (Primary Dx) 08/18/2025 Results Follow-Up [facility] Medicine Rheumatology [facility] 5th [place] [address] [place] [address] Diandra Lopez MD CBC with auto differential 08/10/2025 Plan of Care Documentation [facility] Medicine Occupational Therapy [address] [place] [address] 6th [place] [address] [place] [address] 08/09/2025 2:00 PM CDT Therapy [facility] Medicine Occupational Therapy [address] [place] [address] 6th [place] [address] [place] [address] Joie Jones OT Pain of right thumb (Primary Dx); 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) 08/03/2025 12:30 PM CDT Telemedicine [facility] Medicine Rheumatology 1 [facility] [address] [place] [address] Diandra Lopez MD Rheumatoid arthritis, erosive, seronegative (HCC) (Primary Dx); High risk medication use from Last 3 Months Surgical History Surgery [...] file 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 Gender Identity Not on file Sexual Orientation Not on file Obstetrics History Last Filed Vital Signs Vital Sign Reading Time Taken Comments Blood Pressure 115/75 05/17/2025 11:13 AM CDT Pulse 63 05/17/2025 11:13 AM CDT Temperature 36.4 C (97.6 F) 02/08/2025 8:22 AM CDT Respiratory Rate 18 01/23/2022 7:08 AM VEHICLE TRIMMER Oxygen Saturation 100% 05/17/2025 11:13 AM CDT [...] Procedure Name Priority Date/Time Associated Diagnosis Comments CBC WITH AUTO DIFFERENTIAL Routine 08/16/2025 8:34 AM CDT High risk medication use HEPATITIS C ANTIBODY Routine 04/07/2024 1:00 PM CDT Seronegative arthritis Rheumatoid arthritis, erosive, seronegative (HCC) 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) from Last 3 Months or Most Recently Relevant to Health Maintenance Results * CBC with auto differential (08/16/2025 8:34 AM CDT) Pathologist [facility] WBC 6.3 3.8 - 10.8 Thousand/u L [facility] RBC, POC 4.50 3.80 - 5.10 Million/uL [facility] Hgb 13.8 11.7 - 15.5 g/dL [facility] Hct 41.2 35.0 - 45.0 % [facility] MCV 91.6 80.0 - 100.0 fL [facility] MCH 30.7 27.0 - 33.0 pg [facility] MCHC 33.5 32.0 - 36.0 g/dL [facility] Comment: For adults, a slight decrease in the calculated MCHC value (in the range of 30 to 32 g/dL) is most likely not clinically significant; however, it should be interpreted with caution in correlation with other red cell parameters and the patient's clinical condition. Rdw 14.1 11.0 - 15.0 % [facility] Platelets 297 140 - 400 Thousand/u L [employer] MPV 9.6 7.5 - 12.5 fL [facility] Neutrophils, abs 3,062 1,500 - 7,800 cells/uL [facility] Lymphocytes, abs 2,722 850 - 3,900 cells/uL [facility] Monocyte abs 359 200 - 950 cells/uL [facility] Eosinophils, abs 88 15 - 500 cells/uL [facility] Basophils, abs 69 0 - 200 cells/uL [facility] Neutrophils 48.6 % [facility] Lymphocyte pct 43.2 % [facility] Monocytes 5.7 % [facility] Eosinophils 1.4 % [facility] Basophils 1.1 % [facility] Blood 08/16/2025 8:34 AM CDT 08/16/2025 8:34 AM CDT Diandra Lopez MD LAB BLOOD ORDERABLES Mahi hauser Result [facility] [address] [place] [address] * Hepatitis C antibody Blood (04/07/2024 1:00 PM CDT) Hep C Ab Nonreactive Nonreactive Comment:Antibodies to HCV no t detected. Does NOT exclude the possibility of recent exposure to HCV. Current interpretive data was last revised on 22 Blood 04/07/2024 1:00 PM CDT 04/07/2024 2:08 PM CDT Chandan De La Paz NP LAB MICROBIOLOGY - GENERAL ORD ERABLES Final Result [facility] [place] [address] from Last 3 Months or Most Recently Relevant to Health Maintenance Insurance [facility] ACCESS CHOICE [facility] ACCESS CHOICE Care Teams Cake Press Operator Helper Relationship Specialty Start Date End Date Estuardo Reyes DO [address] [place] [address] PCP - General Internal Medicine 05/17/25 Nico Anderson PA [address] [place] [address] Physician Paper Wood Cutter Physician Paper Wood Cutter 08/28/23
== END 2025-09-16 12:55 | disposition home or self-care (01) ==
LOC: ANHFOHIMG 12:58
PROVIDERS: PCP Internal Medicine; Visit Provider Obstetrics & Gynecology
DX: R92.322 Mammographic fibroglandular density, left breast (principal); R92.8 Other abnormal and inconclusive findings on diagnostic imaging of breast
CPT/HCPCS: 76642; 77061; 77065; G0279

== ENCOUNTER 2025-10-01 11:32 | Outpatient (CLI) | payer BC, SELFPAY ==
--- OUTSIDE RECORDS SUMMARY | 2025-10-01 11:42 | XMS_ITS | Encounter Summary ---
Author Organization [facility] Address [address] [place] [address] Phone Care Team Providers Care Child Care Associate Teacher Name Role Phone Nico Anderson Unavailable [phone] Estuardo Reyes DO Primary Care Provider [phone] Encounter Details Date Type Department Care Team (Latest Contact Info) Description 08/18/2025 Results Follow-Up [facility] Medicine Rheumatology [address] [facility] Advanced Medicine 5th [place] [address] [place] [address] Diandra Lopez MD [address] [place] [address] CBC with auto differential Social History Tobacco Use Types Packs/Day Years Used Date Smoking Tobacco: Never Comments Unknown Sex and Gender Information Value Date Recorded Sex Assigned at Not on file 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 Gender Identity Not on file Sexual Orientation Not on file documented as of this encounter Plan of Treatment Not on file documented as of this encounter Visit Diagnoses Not on filedocumented in this encounter Care Teams Child Care Associate Teacher Relationship Specialty Start Date End Date Estuardo Reyes DO [address] [place] [address] PCP - General Internal Medicine 05/17/25 Nico Anderson PA [address] [facility] [address] [place] [address] Physician Combustion Analyst Physician Combustion Analyst 08/28/23 documented as of this encounter
--- OUTSIDE RECORDS SUMMARY | 2025-10-01 11:42 | XMS_ITS | Clinical Summary ---
Author Organization [facility] Address [address] [place] [address] Care Team Providers Care [employer] Business Analyst Name Role Phone Nico Anderson PA Unavailable [phone] Estuardo Reyes DO Primary Care Provider [phone] Allergies Active Allergy Reactions Criticality Noted Date [...] total) by mouth daily 180 tablet 3 Active hydroxychloroquin e (PLAQUENIL) 200 mg tabletIndications :Rheumatoid arthritis, erosive, seronegative (HCC),Seronegativ e rheumatoid arthritis of both hands (HCC) TAKE 1 TABLET BY MOUTH TWICE A DAY 60 tablet 2 Active Active Problems Problem Noted Date Diagnosed Date 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 Foot pain, bilateral 04/15/2024 Rheumatoid arthritis, erosive, seronegative 11/01 Bilateral hand pain 09/17/2023 Positive SNEHAL (antinuclear antibody) 09/17/2023 Pelvic pain 09/17/2023 Urticaria, unspecified 05/27/2014 Encounters Date Type Department Care Team Description 09/14/2025 Orders Only [facility] Rhe[facility] [address] [place] [address] [place] [address] Riley Leonard LPN 08/26/2025 Orders Only [facility] Medicine Rheumatology [facility] [address] [place] [address] Diandra Lopez MD High risk medication use (Primary Dx) 08/18/2025 Results Follow-Up [facility] Medicine Rheumatology [address] [place] [address] [place] [address] [place] [address] Diandra Lopez MD CBC with auto differential 08/10/2025 Plan of Care Documentation [facility] Occupational Therapy [address] [place] [address] 6th [place] [address] [place] [address] 08/09/2025 2:00 PM CDT Therapy [facility] Occupational Therapy [address] [place] [address] Medicine 6th [place] [address] [place] [address] Joie Jones, OT Pain of right thumb (Primary Dx); 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) 08/03/2025 12:30 PM CDT Telemedicine [facility] Rheumatology [address] [facility] [address] [place] [address] Diandra Lopez MD Rheumatoid arthritis, erosive, seronegative [...] on file Legal Sex Female 5:16 AM [employer] Gender Identity Not on file Sexual Orientation Not on file Obstetrics History Last Filed Vital Signs Vital Sign Reading Time Taken Comments Blood Pressure 115/75 05/17/2025 11:13 AM CDT Pulse 63 05/17/2025 11:13 AM CDT Temperature 36.4 C (97.6 F) 02/08/2025 8:22 AM CDT Respiratory Rate 18 01/23/2022 7:08 AM [employer] Oxygen Saturation 100% 05/17/2025 11:13 AM CDT [...] with auto differential (08/16/2025 8:34 AM CDT) WBC 6.3 3.8 - 10.8 Thousand/u L [facility] RBC, POC 4.50 3.80 - 5.10 Million/uL [facility] Hgb 13.8 11.7 - 15.5 g/dL [facility] Hct 41.2 35.0 - 45.0 % [facility] MCV 91.6 80.0 - 100.0 fL [facility] MCH 30.7 27.0 - 33.0 pg [facility] MCHC 33.5 32.0 - 36.0 g/dL [facility] Comment: For adults, a slight decrease in the calculated MCHC value (in the range of 30 to 32 g/dL) is most likely not clinically significant; however, it should be interpreted with caution in correlation with other red cell parameters and the patient's clinical condition. Rdw 14.1 11.0 - 15.0 % [facility] Platelets 297 140 - 400 Thousand/u L [facility] MPV 9.6 7.5 - 12.5 fL [facility] Neutrophils, abs 3,062 1,500 - 7,800 cells/uL [facility] Lymphocytes, abs 2,722 850 - 3,900 cells/uL [facility] Monocyte abs 359 200 - 950 cells/uL [facility] Eosinophils, abs 88 15 - 500 cells/uL [facility] Basophils, abs 69 0 - 200 cells/uL [facility] Neutrophils 48.6 % [facility] Lymphocyte pct 43.2 % [facility] Monocytes 5.7 % [facility] Eosinophils 1.4 % [facility] Basophils 1.1 % [facility] Blood 08/16/2025 8:34 AM CDT 08/16/2025 8:34 AM CDT Diandra Lopez MD LAB BLOOD ORDERABLES Mahi l Result [facility] [address] [place] [address] * Hepatitis C antibody Blood (04/07/2024 1:00 PM CDT) Hep C Ab Nonreactive Nonreactive Comment:Antibodies to HCV no t detected. Does NOT exclude the possibility of recent exposure to HCV. Current interpretive data was last revised on 22 Blood 04/07/2024 1:00 PM CDT 04/07/2024 2:08 PM CDT Chandan De La Paz NP LAB MICROBIOLOGY - GENERAL ORD ERABLES Final Result [facility] [place] [address] from Last 3 Months or Most Recently Relevant to Health Maintenance Insurance [facility] ACCESS CHOICE ANTH ACCESS CHOICE Care Teams [employer] Business Analyst Relationship Specialty Start Date End Date Estuardo Reyes DO [address] [facility] [address] [place] [address] PCP - General Internal Medicine 05/17/25 Nico Anderson PA [address] [place] [address] [place] [address] Physician International Marketing Executive Physician International Marketing Executive 08/28/23
[2025-10-01 13:37] LABS: Influenza A QL RT-PCR Negative (Negative); Influenza B QL RT-PCR Negative (Negative); RSV RNA, RT-PCR Negative (Negative); SARS-CoV-2 RNA PCR Negative (Negative)
== END 2025-10-01 11:33 | disposition home or self-care (01) ==
LOC: ANHLAB 11:35
PROVIDERS: PCP Internal Medicine; Visit Provider Internal Medicine
DX: Z20.822 Contact with and (suspected) exposure to COVID-19 (principal)
CPT/HCPCS: 87637

== ENCOUNTER 2025-10-14 10:09 | Emergency (ER) | payer BC, SELFPAY ==
--- NOTE | 2025-10-14 10:15 | ED.FEMALEGU ---
HPI - Female Genitourinary General Chief complaint: Urogenital-Female Stated complaint: UTI SYMPTOMS Source: patient and RN notes reviewed Mode of arrival: ambulatory Limitations: no limitations History of Present Illness HPI Narrative: Patient is a 54-year-old female who presents to the [facility] with complaints of possibly urinary tract infection. Patient states that she developed bilateral lower back pain on Saturday. She started having dysuria, urinary hesitancy, urinary frequency and urgency on Saturday. She states that her symptoms worsened today. She denies known hematuria. Denies recent fevers. States that her symptoms are similar to that she experienced in the past with UTIs. Related Data Home Medications ?Medication ?Instructions ?Recorded ?Confirmed ?Last Taken ?Type hydroxychloroquine 200 mg tablet 200 mg PO DAILY 04/08/24 10/01/25 Unknown History valacyclovir 500 mg tablet 500 mg PO DAILY 04/08/24 10/01/25 Unknown History (Valtrex) folic acid 1 mg tablet 2 mg PO DAILY 07/30/25 10/01/25 Unknown History methotrexate sodium 2.5 mg tablet 2.5 mg PO .COMPLEX 08/03/25 10/01/25 Unknown History Allergies Allergy/AdvReac Type Severity Reaction Status Date / Time iodine Allergy Unknown Rash Verified 10/01/25 10:49 sulfanilamide Allergy Unknown Hives Verified 10/01/25 10:49 adhesive tape AdvReac Severe RASH Verified 10/01/25 10:49 Contrast Media Allergy Intermediate Swelling Uncoded 10/01/25 10:49 Review of Systems Review of Systems: CONSTITUTIONAL: Denies fever, chills, or sweats. EYES: Denies visual changes, redness, or discharge. ENT: Denies otalgia and sore throat CARDIOVASCULAR: Denies chest pain, palpitations, or edema. RESPIRATORY: Denies cough or dyspnea. GASTROINTESTINAL: Denies abdominal pain, nausea, vomiting, or diarrhea. GENITOURINARY: Reports dysuria, urinary frequency, urinary urgency. SKIN: Denies rash or itching. MUSCULOSKELETAL: Denies back pain, joint pain, or myalgia. NEUROLOGIC: Denies headache, numbness, or weakness. Pertinent positives per HPI. [facility] Past Medical History Medical History Dysuria Urticaria Pure hypercholesterolemia, unspecified Other fatigue Hyperglycemia Chronic constipation GERD (gastroesophageal reflux disease) Diabetes mellitus Hypercholesterolemia Migraine History of gastroesophageal reflux (GERD) Surgical History Surgical History History of removal of cervix but not uterus for abnormal cells History of History of hysterectomy At about age 35 History of cholecystectomy History of appendectomy Family History Family History Father Hypertension Mother Dementia Other Family history of osteoarthritis Social History Social History Smoking status: Never smoker Second hand tobacco smoke exposure: Yes Alcohol intake: current Alcohol use details: about once per month, small amount Substance use: never Substance use type: does not use Do You Feel Safe in your Home?: Yes Lack of Transportation: No Lack of Food: Never True Current Housing: I Have Housing Concerned About Future Housing: No Difficulty Paying Gas/Electric Bills: No Difficulty Paying for Meds: No Currently Unemployed: No Education: Bachelor's Degree Difficulty w/ Childcare or Family Care: No Living arrangements: alone Occupation/Education: occupation 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 There is no relevant family history pertinent to the patient complaint. Exam Narrative: GENERAL: This is a well-nourished, well-developed patient, in no apparent distress. HEAD: normocephalic, atraumatic. EYES: Sclera clear/white. Vision is grossly intact. EARS: External ears normal. Hearing grossly intact. NOSE: External nose normal with no obvious nasal discharge, nares without redness, no rhinorrhea. THROAT: Mucous membranes moist. NECK: Neck supple, non-tender without lymphadenopathy, masses or thyromegaly. CARDIOVASCULAR: Regular rate and rhythm without murmurs, gallops, or rubs. RESPIRATORY: Clear to auscultation. Breath sounds equal bilaterally. No wheezes, rales, or rhonchi. GASTROINTESTINAL: Abdomen soft, non-tender, nondistended. Bowel sounds are active. No hepato-splenomegaly, or palpable masses. No guarding. SKIN: warm, intact with no suspicious lesions or rash, good texture and turgor. NEURO: awake, alert, and oriented to person, place and time. There were no obvious focal neurologic abnormalities. EXTREMITIES: No clubbing, cyanosis, or edema. No joint tenderness, effusion, or edema noted. BACK: Nontender without deformity or crepitance. No flank tenderness. Course Course Level of Care: Express Care Visit Vital Signs Vital signs: Vital Signs Temperature 97.4 F L 10/14/25 10:26 Pulse Rate 71 10/14/25 10:26 Respiratory Rate 16 10/14/25 10:26 Blood Pressure 100/64 10/14/25 10:26 Pulse Oximetry 100 10/14/25 10:26 Temperature 97.4 F L 10/14/25 10:26 Pulse Rate 71 10/14/25 10:26 Respiratory Rate 16 10/14/25 10:26 Blood Pressure 100/64 10/14/25 10:26 Pulse Oximetry 100 10/14/25 10:26 Reviewed MDM - Female Genitourinary MDM Narrative Medical decision making narrative: We will send a urine culture off to the lab; if the culture identifies an organism that the prescribed antibiotic will not treat, you will receive a phone call from an urgent care staff member and an appropriate antibiotic will be prescribed. -Your symptoms should begin to improve within a day of starting antibiotics. But you should finish all the antibiotic pills you get. Otherwise your infection might come back. -Also recommend: drink more fluid. It might help flush out germs, and it does no harm -Tylenol/ibuprofen as needed for pain -Follow-up with your primary care provider for urine recheck OR if your symptoms persist, change or worsen significantly before you can contact your personal physician then please, without delay, go to the emergency department for further evaluation. Differential Diagnosis Differential diagnosis: Likely urinary tract infection, vaginitis and cystitis Lab Data Attestation: I reviewed the patient's lab results. Labs: Lab Results 10/14/25 Range/Units 10:26 POC Urine Color Yellow POC Urine Clarity Cloudy POC Urine pH 6.5 POC Ur Specif [place] 1.025 POC Urine Protein Trace (Negative) POC Ur Glucose (UA) Negative (Negative) POC Urine Ketones Negative (Negative) POC Urine Blood 3+ (Negative) POC Urine Nitrite Negative (Negative) POC Urine Bilirubin Negative (Negative) POC Urine Urobilinogen 0.2 POC U Leukocyte Esteras 3+ (Negative) Critical Care Time Critical Care Time Critical Care Time: No Discharge Plan Discharge Clinical Impression: Acute cystitis with hematuria Patient Disposition: Home Condition: Stable Instructions: Antibiotic Form, Urinary Tract Infection in Women (ED) Additional Instructions: We will send a urine culture off to the lab; if the culture identifies an organism that the prescribed antibiotic will not treat, you will receive a phone call from an urgent care staff member and an appropriate antibiotic will be prescribed. -Your symptoms should begin to improve within a day of starting antibiotics. But you should finish all the antibiotic pills you get. Otherwise your infection might come back. -Also recommend: drink more fluid. It might help flush out germs, and it does no harm -Tylenol/ibuprofen as needed for pain -Follow-up with your primary care provider for urine recheck OR if your symptoms persist, change or worsen significantly before you can contact your personal physician then please, without delay, go to the emergency department for further evaluation. Patient Language: Marshallese Prescriptions: New cephalexin 500 mg capsule 500 mg PO Q8H 7 Days Qty: 21 0RF No Action alendronate 35 mg tablet 35 mg PO WEEKLY Qty: 12 0RF hydroxychloroquine 200 mg tablet 200 mg PO DAILY valacyclovir [Valtrex] 500 mg tablet 500 mg PO DAILY ([facility]) lancets [OneTouch UltraSoft Lancets] [facility] [place] [facility] See Rx Instructions .Route Qty: 100 3RF Rx Instructions: check blood sugar once daily ([facility]) blood-glucose meter [OneTouch Verio Reflect Meter] Mis See Rx Instructions .Route Qty: 1 0RF Rx Instructions: As directed ([facility]) OneTouch Verio test strips Strip See Rx Instructions .Route Qty: 100 3RF Rx Instructions: check blood sugar once daily rosuvastatin [Crestor] 10 mg tablet 10 mg PO DAILY Qty: 90 2RF fenofibrate 160 mg tablet 160 mg PO DAILY Qty: 90 2RF Jardiance 25 mg tablet 25 mg PO DAILY Qty: 90 2RF sertraline 100 mg tablet 100 mg PO DAILY Qty: 90 2RF alprazolam 0.5 mg tablet 0.5 mg PO DAILY PRN (Reason: panic attack(s)) Qty: 10 0RF folic acid 1 mg tablet 2 mg PO DAILY methotrexate sodium 2.5 mg tablet 2.5 mg PO .COMPLEX Rx Instructions: 2.5 mg orally Take 10 tablets at one time once weekly; zolpidem 10 mg tablet 10 mg PO QHS PRN (Reason: insomnia) Qty: 30 0RF Follow-up/Referrals: Estuardo Reyes DO [Primary Care Provider, Internal Medicine] Stand Alone Forms: Work/School Release IP Time of Disposition: 10:47
[2025-10-14 10:26] VITALS: BP 100/64; PULSE 71; RESP 16; TEMP 36.3; O2SAT 100
[2025-10-14 10:29] LABS: EDUAAPPEAR Cloudy; EDUABILI Negative (Negative); EDUABLOOD 3+ (Negative); EDUACOLOR1 Yellow; EDUAGLUCOSE Negative (Negative); EDUAKETONE Negative (Negative); EDUALEUKO 3+ (Negative); EDUANITRATE Negative (Negative); EDUAPH 6.5; EDUAPROTEIN Trace (Negative); EDUASPGRAVITY 1.025; EDUAUROBILI 0.2
== END 2025-10-14 10:53 | disposition home or self-care (01) ==
PROVIDERS: Emergency Provider Nurse Practitioner; PCP Internal Medicine
DX: N30.01 Acute cystitis with hematuria (principal); E11.9 Type 2 diabetes mellitus without complications; Z79.84 Long term (current) use of oral hypoglycemic drugs; E78.00 Pure hypercholesterolemia, unspecified; K21.9 Gastro-esophageal reflux disease without esophagitis
CPT/HCPCS: 81003; 87077; 87086; 87186; 99213; G0463

== ENCOUNTER 2025-11-04 17:08 | Emergency (ER) | payer BC, SELFPAY ==
[2025-11-04 17:16] VITALS: BP 126/60; PULSE 70; RESP 16; TEMP 35.9; O2SAT 100
--- NOTE | 2025-11-04 17:17 | ED.FEMALEGU ---
HPI - Female Genitourinary General Chief complaint: Urogenital-Female Stated complaint: UTI SYMPTOMS Time Seen by Provider: 11/04/25 17:20 Source: patient Mode of arrival: ambulatory Limitations: no limitations History of Present Illness HPI Narrative: Yolanda is a 54-year-old female patient presenting to clinic today with complaints of possible UTI x1 day. She reports she is having low back pain, burning with urination, urgency, frequency, and lower abdominal tenderness. She denies any nausea or vomiting. No known fevers, chills, body aches. Recently had a UTI back in October that grew E coli-was susceptible to all antibiotics on the culture and sensitivity list. Related Data Home Medications ?Medication ?Instructions ?Recorded ?Confirmed ?Last Taken ?Type hydroxychloroquine 200 mg tablet 200 mg PO DAILY 04/08/24 11/04/25 Unknown History folic acid 1 mg tablet 2 mg PO DAILY 07/30/25 11/04/25 Unknown History methotrexate sodium 2.5 mg tablet 2.5 mg PO .COMPLEX 08/03/25 11/04/25 Unknown History Allergies Allergy/AdvReac Type Severity Reaction Status Date / Time iodine Allergy Unknown Rash Verified 10/20/25 08:38 sulfanilamide Allergy Unknown Hives Verified 10/20/25 08:38 adhesive tape AdvReac Severe RASH Verified 10/20/25 08:38 Contrast Media Allergy Intermediate Swelling Uncoded 10/20/25 08:38 [facility] Past Medical History Medical History Dysuria Urticaria Pure hypercholesterolemia, unspecified Other fatigue Hyperglycemia Chronic constipation GERD (gastroesophageal reflux disease) Diabetes mellitus Hypercholesterolemia Migraine History of gastroesophageal reflux (GERD) Surgical History Surgical History History of removal of cervix but not uterus for abnormal cells History of History of hysterectomy At about age 35 History of cholecystectomy History of appendectomy Family History Family History Father Hypertension Mother Dementia Other Family history of osteoarthritis Social History Social History Smoking status: Never smoker Second hand tobacco smoke exposure: Yes Alcohol intake: current Alcohol use details: about once per month, small amount Substance use: never Substance use type: does not use Lack of Transportation: No Lack of Food: Never True Current Housing: I Have Housing Concerned About Future Housing: No Difficulty Paying Gas/Electric Bills: No Difficulty Paying for Meds: No Currently Unemployed: No Education: Bachelor's Degree Difficulty w/ Childcare or Family Care: No Living arrangements: alone Occupation/Education: occupation 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 There is no relevant family history pertinent to the patient complaint. Course Course Level of Care: Express Care Visit Vital Signs Vital signs: Vital Signs Temperature 35.9 C L 11/04/25 17:16 Pulse Rate 70 11/04/25 17:16 Respiratory Rate 16 11/04/25 17:16 Blood Pressure 126/60 11/04/25 17:16 Pulse Oximetry 100 11/04/25 17:16 Temperature 35.9 C L 11/04/25 17:16 Pulse Rate 70 11/04/25 17:16 Respiratory Rate 16 11/04/25 17:16 Blood Pressure 126/60 11/04/25 17:16 Pulse Oximetry 100 11/04/25 17:16 MDM MDM Narrative Medical decision making narrative: At the time of visit patient is resting comfortably on the exam table. Patient appears to be nontoxic. Complaints of possible UTI x1 day. She reports she is having low back pain, burning with urination, urgency, frequency, and lower abdominal tenderness. She denies any nausea or vomiting. No known fevers, chills, body aches. Recently had a UTI back in October that grew E coli-was susceptible to all antibiotics on the culture and sensitivity list. On exam patient has soft, pliable, nondistended abdomen, bowel sounds present all 4 quadrants, suprapubic tenderness and left CVAT tenderness. Urine dip and bedside glucose ordered. Labs: Urinalysis positive for leukocytes, blood, protein, and 3+ glucose. We will send urine for culture. Bedside glucose was 174 in the clinic today. Plan: I suspect patient has UTI some probable early pyelo. Prescription for cephalexin was sent to the pharmacy. Supportive measures were discussed with the patient and they voiced understanding discharge instructions and agrees to treatment plan. Return precautions reviewed Differential Diagnosis Differential Diagnosis: Differential diagnostic considerations for female urogenital issues include urinary tract infection, bacterial vaginosis, cervicitis, ovarian cyst, vaginitis, STI exposure, ovarian torsion, ectopic , cyst of Bartholin?s gland, cystitis, dysmenorrhea. Lab Data Labs: Lab Results 11/04/25 11/04/25 Range/Units 17:28 17:43 POC Capillary Glucose 177 H (65-105) mg/dl POC Urine Color Yellow POC Urine Clarity Clear POC Urine pH 6.0 POC Ur Specif [place] 1.015 POC Urine Protein 2+ (Negative) POC Ur Glucose (UA) 3+ (Negative) POC Urine Ketones Negative (Negative) POC Urine Blood 3+ (Negative) POC Urine Nitrite Negative (Negative) POC Urine Bilirubin Negative (Negative) POC Urine Urobilinogen 2.0 POC U Leukocyte Esteras 3+ (Negative) Discharge Plan Discharge Clinical Impression: UTI (urinary tract infection) Qualifiers: Urinary tract infection type: acute cystitis Hematuria presence: with hematuria Qualified Code(s): N30.01 - Acute cystitis with hematuria Patient Disposition: Home Condition: Stable Instructions: Antibiotic Form, Urinary Tract Infection in Women (ED) Additional Instructions: Blood sugar was 177 in the clinic today. Urine positive for leukocytes, protein, blood, and 3+ glucose. We will send urine for culture. Take cephalexin as prescribed Increase fluids and stay well hydrated Wipe front to back. May use wet wipes. Avoid tub baths If sexually active- pee before and after intercourse. Wear cotton panties Avoid tight clothing up against the genitals Follow up with your PCP in 1 week if symptoms persist. Patient Language: Nepalese Prescriptions: New cephalexin 500 mg capsule 500 mg PO Q12H 7 Days Qty: 14 0RF No Action alendronate 35 mg tablet 35 mg PO WEEKLY Qty: 12 0RF hydroxychloroquine 200 mg tablet 200 mg PO DAILY (DME) lancets [OneTouch UltraSoft Lancets] Misc See Rx Instructions .Route Qty: 100 3RF Rx Instructions: check blood sugar once daily (DME) blood-glucose meter [OneTouch Verio Reflect Meter] Misc See Rx Instructions .Route Qty: 1 0RF Rx Instructions: As directed (DME) OneTouch Verio test strips Strip See Rx Instructions .Route Qty: 100 3RF Rx Instructions: check blood sugar once daily fenofibrate 160 mg tablet 160 mg PO DAILY Qty: 90 2RF sertraline 100 mg tablet 100 mg PO DAILY Qty: 90 2RF alprazolam 0.5 mg tablet 0.5 mg PO DAILY PRN (Reason: panic attack(s)) Qty: 10 0RF folic acid 1 mg tablet 2 mg PO DAILY methotrexate sodium 2.5 mg tablet 2.5 mg PO .COMPLEX Rx Instructions: 2.5 mg orally Take 10 tablets at one time once weekly; rosuvastatin [Crestor] 10 mg tablet 10 mg PO DAILY Qty: 90 2RF valacyclovir [Valtrex] 500 mg tablet 500 mg PO DAILY Qty: 90 1RF Jardiance 25 mg tablet 25 mg PO DAILY Qty: 90 2RF zolpidem 10 mg tablet 10 mg PO QHS PRN (Reason: insomnia) Qty: 30 0RF Follow-up/Referrals: Estuardo Reyes DO [Primary Care Provider, Internal Medicine] Time of Disposition: 17:56 Quality NIHSS Nursing Documentation ED NIHSS nursing documentation: reviewed/agree
[2025-11-04 17:31] LABS: EDUAAPPEAR Clear; EDUABILI Negative (Negative); EDUABLOOD 3+ (Negative); EDUACOLOR1 Yellow; EDUAGLUCOSE 3+ (Negative); EDUAKETONE Negative (Negative); EDUALEUKO 3+ (Negative); EDUANITRATE Negative (Negative); EDUAPH 6.0; EDUAPROTEIN 2+ (Negative); EDUASPGRAVITY 1.015; EDUAUROBILI 2.0
== END 2025-11-04 18:00 | disposition home or self-care (01) ==
PROVIDERS: Emergency Provider Nurse Practitioner Family; PCP Internal Medicine
DX: N30.01 Acute cystitis with hematuria (principal); E11.9 Type 2 diabetes mellitus without complications; Z79.84 Long term (current) use of oral hypoglycemic drugs; E78.00 Pure hypercholesterolemia, unspecified; K21.9 Gastro-esophageal reflux disease without esophagitis
CPT/HCPCS: 81003; 82948; 87086; 87186; 99213; G0463

== ENCOUNTER 2025-11-15 09:25 | Emergency (ER) | payer BC, SELFPAY ==
--- NOTE | ~2025-11-15 | CT_ITS ---
EXAM/PROCEDURE: CT abdomen pelvis wo con HISTORY: left flank pain COMPARISON: January 17, 2011 TECHNIQUE: Noncontrast exam FINDINGS: No hydroureteronephrosis. No obstructing ureteral stones, kidney stones or urinary bladder stones. The bowel gas pattern is nonobstructive with no free air free fluid or pneumatosis. Moderate amount of stool extends to the cecum. No grossly inflamed appendix. No AAA. Some of the loops of small bowel in the left hemiabdomen appear to have wall thickening. See image 16 series 3. In the right lobe of the liver, a 4.4 x 3.0 x 2.9 cm predominantly simple appearing cystic mass is present, in similar location where there is approximately 10 mm sized low density lesion on the previous exam. 2.5 cm cystic lesion in the left lobe liver present where a previously seen 1.5 cm lesion was present. Cholecystectomy clips. No other liver lesions or masses. Lung bases are clear. Heart size normal. Bones appear intact. IMPRESSION: 1. Directed noncontrast CT of abdomen and pelvis demonstrating scattered loops of possible small bowel wall thickening in the jejunum. Findings could be associated with inflammatory or infectious enteritis. No acute surgical abnormality identified. 2. Increased size of cystic lesions in the liver statistically most likely represent benign cysts if patient has no history of malignancy. Follow-up abdominal MRI recommended. Reviewed, dictated and finalized at location A. [facility] IMPRESSION: 1. Directed noncontrast CT of abdomen and pelvis demonstrating scattered loops of possible small bowel wall thickening in the jejunum. Findings could be assoc iated with inflammatory or infectious enteritis. No acute surgical abnormality identified. 2. Increased size of cystic lesions in the liver statistically most likely repr esent benign cysts if patient has no history of malignancy. Follow-up abdominal MRI recommended.
[2025-11-15 09:35] VITALS: BP 120/60; PULSE 64; RESP 14; TEMP 36.6; O2SAT 100
[2025-11-15 10:30] VITALS: BP 130/56; PULSE 60; RESP 17; TEMP 36.4; O2SAT 99
--- NOTE | 2025-11-15 10:33 | ED.GENADULT ---
HPI - General Adult General Chief complaint: Back Pain/Injury Stated complaint: left flank pain Time Seen by Provider: 11/15/25 10:20 History of Present Illness HPI narrative: 54-year-old female with history of constipation presents to the ER complaining of left flank pain has been present for 3 days, worsening today. Patient states she was being treated for a UTI a had 2 weeks ago, 5 days into her course of antibiotics, she was called and antibiotics were changed. Endorses nausea without fever. Denies dysuria, urinary frequency or urgency. No history kidney stones. Related Data Home Medications ?Medication ?Instructions ?Recorded ?Confirmed ?Last Taken ?Type hydroxychloroquine 200 mg tablet 200 mg PO DAILY 04/08/24 11/04/25 Unknown History folic acid 1 mg tablet 2 mg PO DAILY 07/30/25 11/04/25 Unknown History methotrexate sodium 2.5 mg tablet 2.5 mg PO .COMPLEX 08/03/25 11/04/25 Unknown History Allergies Allergy/AdvReac Type Severity Reaction Status Date / Time iodine Allergy Unknown Rash Verified 11/15/25 10:37 sulfanilamide Allergy Unknown Hives Verified 11/15/25 10:37 adhesive tape AdvReac Severe RASH Verified 11/15/25 10:37 Contrast Media Allergy Intermediate Swelling Uncoded 10/20/25 08:38 Review of Systems Review of Systems: All systems reviewed & are unremarkable except as noted in HPI and below PMFSH Past Medical History Medical History Dysuria Urticaria Pure hypercholesterolemia, unspecified Other fatigue Hyperglycemia Chronic constipation GERD (gastroesophageal reflux disease) Diabetes mellitus Hypercholesterolemia Migraine History of gastroesophageal reflux (GERD) Surgical History Surgical History History of removal of cervix but not uterus for abnormal cells History of History of hysterectomy At about age 35 History of cholecystectomy History of appendectomy Family History Family History Father Hypertension Mother Dementia Other Family history of osteoarthritis Social History Social History Smoking status: Never smoker Second hand tobacco smoke exposure: Yes Alcohol intake: current Alcohol use details: about once per month, small amount Substance use: never Substance use type: does not use Lack of Transportation: No Lack of Food: Never True Current Housing: I Have Housing Concerned About Future Housing: No Difficulty Paying Gas/Electric Bills: No Difficulty Paying for Meds: No Currently Unemployed: No Education: Bachelor's Degree Difficulty w/ Childcare or Family Care: No Living arrangements: alone Occupation/Education: occupation 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 Gender identity (if verbalized by the patient): Female Spiritual care concerns: No Agree to blood products: Yes Exam Const: General: no acute distress and alert HENMT: Head: normal to inspection Eyes: Conjunctivae: conjunctivae normal Pupils: Equal, round and reactive pupils present EOM: EOMs intact bilaterally Resp: Effort & Inspection: normal respiratory effort Auscultation: clear to auscultation bilaterally Cardio: Rate: regular rate Rhythm: regular rhythm GI: GI Palp: Yes Tenderness to palpation present (GI) Other: LLQ/LUQ pain, Back/Spine/Pelvis: Back: CVA tenderness (left) Skin: General skin exam: normal color Neuro: General: patient oriented x3 and moves all extremities Speech: normal speech Extrem: General: normal to inspection Psych: Mental Status: mental status grossly normal Affect: normal affect Course Vital Signs Vital signs: Vital Signs Temperature 36.6 C 11/15/25 09:35 Pulse Rate 64 11/15/25 09:35 Respiratory Rate 14 11/15/25 09:35 Blood Pressure 120/60 11/15/25 09:35 Pulse Oximetry 100 11/15/25 09:35 Oxygen Delivery Room Air 11/15/25 09:35 Temperature 36.4 C 11/15/25 10:30 Pulse Rate 60 11/15/25 10:30 Respiratory Rate 17 11/15/25 10:30 Blood Pressure 130/56 L 11/15/25 10:30 Pulse Oximetry 99 11/15/25 10:30 Oxygen Delivery Room Air 11/15/25 10:30 [facility] Narrative Medical decision making narrative: In summary: 54, female presents ER pain for several days. Lab work was unremarkable. CT scan showed evidence of a moderate stool burden to the descending colon likely due cause of patient's symptoms. It is to discharge patient home with an Rx for magnesium citrate. Differential Diagnosis Differential Diagnosis: Kidney stone, pyelonephritis, constipation, diverticulitis Lab Data 11/15/25 10:37 11/15/25 10:37 Labs: Lab Results 11/15/25 11/15/25 Range/Units 10:37 10:42 WBC 5.2 (4.5-10.0) K/mm3 RBC 4.94 (4.2-5.4) M/mm3 Hgb 15.2 H (12.0-15.0) g/dL Hct 44.7 (37.0-47.0) % MCV 90.5 (80-100) fl MCH 30.8 (26-34) pg MCHC 34.0 (32-36) g/dl RDW 13.2 (11.5-14.5) % Plt Count 329 (150-375) k/mm3 MPV 9.1 (7.4-10.4) fl Immature Gran % (Auto) 0.4 (0-0.5) % Neut % (Auto) 44.9 L (45.5-73.1) % Lymph % (Auto) 44.6 H (18.3-44.2) % Marshall % (Auto) 6.4 (2.6-8.5) % Eos % (Auto) 2.5 (0-4.4) % Baso % (Auto) 1.2 (0.2-1.2) % Lymph # (Auto) 2.31 (0.9-3.2) K/mm3 Marshall # (Auto) 0.3 (0.1-0.6) K/mm3 Eos # (Auto) 0.1 (0-0.3) K/mm3 Baso # (Auto) 0.1 (0.0-0.1) K/mm3 Abs Immat Gran (auto) 0.02 (0.00-0.031) K/mm3 Absolute Neuts (auto) 2.3 (1.3-6.7) K/mm3 Absolute Nucleated RBC 0.000 (0.0-0.012) K/mm3 Nucleated RBC % 0.0 (0.0-0.2) % Sodium 141 (137-145) mmol/L Potassium 4.0 (3.4-5.0) mmol/L Chloride 109 H (98-107) mmol/L Carbon Dioxide 22 (22-30) mmol/L Anion Gap 10 (4-12) mmol/L BUN 12 (7-17) mg/dL Creatinine 0.78 (0.7-1.0) mg/dL Estim Creat Clear Calc 67 ml/min Estimated GFR > 60 (59 - ) Glucose 89 (65-110) mg/dL POC Capillary Glucose 75 (65-105) mg/dl Calcium 9.6 (8.4-10.2) mg/dL Total Bilirubin 1.0 (0.2-1.3) mg/dL AST 37 H (14-36) U/L ALT 22 (6-35) U/L Alkaline Phosphatase 54 (38-126) U/L Total Protein 9.3 H (6.3-8.2) g/dL Albumin 5.4 H (3.5-5.1) g/dL Urine Color Yellow (Yellow) Urine Appearance Cloudy H (Clear) Urine pH 8.0 (5.0-9.0) Ur Specific [place] 1.009 (1.001-1.035) Urine Protein Negative (Negative) mg/dL Urine Glucose (UA) 3+ H (Negative) mg/dL Urine Ketones Negative (Negative) mg/dL Ur Blood (Man) Negative (Negative) Urine Nitrate Negative (Negative) Urine Bilirubin Negative (Negative) Urine Urobilinogen 1.0 (<2.0) mg/dL Leukocyte Esterase Rfl Trace H (Negative) AMIRA/UL Urine RBC 0-2 (0-2) /hpf Urine WBC 0-5 (0-3) /hpf Ur Squamous Epith Cells None seen (Few) /hpf Urine Bacteria None seen /hpf Urine Casts 0-2 Imaging Data Radiologist's impression: ITS Impressions Abdomen/Pelvis CT 11/15/25 11:14 IMPRESSION: 1. Directed noncontrast CT of abdomen and pelvis demonstrating scattered loops of possible small bowel wall thickening in the jejunum. Findings could be associated with inflammatory or infectious enteritis. No acute surgical abnormality identified. 2. Increased size of cystic lesions in the liver statistically most likely represent benign cysts if patient has no history of malignancy. Follow-up abdominal MRI recommended. Discharge Plan Discharge Clinical Impression: Abdominal pain Qualifiers: Abdominal location: left lower quadrant Qualified Code(s): R10.32 - Left lower quadrant pain Constipation Qualifiers: Constipation type: other constipation type Qualified Code(s): K59.09 - Other constipation Patient Disposition: Home Condition: Stable Instructions: Antibiotic Form, Constipation (DC) Patient Language: Nepalese Prescriptions: New magnesium citrate [OneLAX Magnesium Citrate] Solution 300 ml PO DAILY PRN (Reason: constipation) Qty: 296 1RF No Action cephalexin 500 mg capsule 500 mg PO Q12H 7 Days Qty: 14 0RF sulfamethoxazole-trimethoprim [Bactrim DS] 800-160 mg tablet 1 tablet PO Q12H Qty: 10 0RF alendronate 35 mg tablet 35 mg PO WEEKLY Qty: 12 0RF hydroxychloroquine 200 mg tablet 200 mg PO DAILY (DME) lancets [[employer] UltraSoft Lancets] Misc See Rx Instructions .Route Qty: 100 3RF Rx Instructions: check blood sugar once daily (DME) blood-glucose meter [[employer] Verio Reflect Meter] Misc See Rx Instructions .Route Qty: 1 0RF Rx Instructions: As directed ([facility] [place]) [employer] Ver[employer] test strips Strip See Rx Instructions .Route Qty: 100 3RF Rx Instructions: check blood sugar once daily fenofibrate 160 mg tablet 160 mg PO DAILY Qty: 90 2RF sertraline 100 mg tablet 100 mg PO DAILY Qty: 90 2RF alprazolam 0.5 mg tablet 0.5 mg PO DAILY PRN (Reason: panic attack(s)) Qty: 10 0RF folic acid 1 mg tablet 2 mg PO DAILY methotrexate sodium 2.5 mg tablet 2.5 mg PO .COMPLEX Rx Instructions: 2.5 mg orally Take 10 tablets at one time once weekly; rosuvastatin [Crestor] 10 mg tablet 10 mg PO DAILY Qty: 90 2RF valacyclovir [Valtrex] 500 mg tablet 500 mg PO DAILY Qty: 90 1RF Jardiance 25 mg tablet 25 mg PO DAILY Qty: 90 2RF zolpidem 10 mg tablet 10 mg PO QHS PRN (Reason: insomnia) Qty: 30 0RF Follow-up/Referrals: Estuardo Reyes DO [Primary Care Provider, Internal Medicine] Time of Disposition: 12:10
[2025-11-15] MEDS: SODIUM CHLORIDE 0.9% IV 1,000 ML 999 ML IV CONT (10:41)
[2025-11-15] MEDS: ONDANSETRON INJ 4 MG/2 ML VIAL IV PUSH (10:41)
[2025-11-15] MEDS: MORPHINE SULFATE (*CRX) 4 MG/ML INJ IV PUSH (10:42)
[2025-11-15 10:44] LABS: Hematocrit 44.7 % (37.0-47.0); Hemoglobin 15.2 g/dL (12.0-15.0); Immature Granulocyte Percent A 0.4 % (0-0.5); Lymphocytes Absolute Auto 2.31 K/mm3 (0.9-3.2); Mean Corpuscular HGB Conc 34.0 g/dl (32-36); Mean Corpuscular Hemoglobin 30.8 pg (26-34); Mean Corpuscular Volume 90.5 fl (80-100); Nucleated Red Blood Cells Absolute Auto 0.000 K/mm3 (0.0-0.012); Nucleated Red Blood Cells Perc 0.0 % (0.0-0.2); Platelet Count Result 329 k/mm3 (150-375); Red Blood Count 4.94 M/mm3 (4.2-5.4); White Blood Count 5.2 K/mm3 (4.5-10.0)
[2025-11-15 10:49] LABS: Add Urine Microscopic? YES; Appearance Urine Cloudy (Clear); Glucose Urine UA 3+ mg/dL (Negative); Leukocyte Esterase Ur Trace LEU/UL (Negative); Nitrate Urine Negative (Negative); Non Pathogenic Casts 0-2; Specific Grav Ur 1.009 (1.001-1.035)
[2025-11-15 10:55] VITALS: BP 125/65; PULSE 69; RESP 16; O2SAT 100
[2025-11-15 11:01] VITALS: BP 128/64; PULSE 74; RESP 15; O2SAT 96
[2025-11-15 11:08] LABS: Alanine Aminotransferase 22 U/L (6-35); Albumin Level 5.4 g/dL (3.5-5.1); Alkaline Phosphatase 54 U/L (38-126); Anion Gap 10 mmol/L (4-12); Aspartate Amino Transferase 37 U/L (14-36); Bilirubin,Total 1.0 mg/dL (0.2-1.3); Blood Urea Nitrogen 12 mg/dL (7-17); Calcium 9.6 mg/dL (8.4-10.2); Carbon Dioxide 22 mmol/L (22-30); Chloride 109 mmol/L (98-107); Estimated CRCL calculation 67 ml/min; Estimated Glomerular Filt Rate > 60; Glucose 89 mg/dL (65-110); Potassium 4.0 mmol/L (3.4-5.0); Sodium 141 mmol/L (137-145); Total Protein 9.3 g/dL (6.3-8.2)
[2025-11-15 11:31] VITALS: BP 115/70; PULSE 71; RESP 16; O2SAT 92
[2025-11-15 12:01] VITALS: BP 113/64; PULSE 68; RESP 15; O2SAT 96
== END 2025-11-15 12:28 | disposition home or self-care (01) ==
PROVIDERS: Emergency Provider Nurse Practitioner Family; PCP Internal Medicine
DX: R10.32 Left lower quadrant pain (principal); K59.09 Other constipation; E78.5 Hyperlipidemia, unspecified; K21.9 Gastro-esophageal reflux disease without esophagitis; E11.9 Type 2 diabetes mellitus without complications
CPT/HCPCS: 36415; 74176; 80053; 81001; 82948; 85025; 96361; 96374; 96375; 99284; J2270; J2405; J7030